=== PATIENT | female | born 1940 | race African-American/Black ===

== ENCOUNTER → 2020-06-30 | Day surgery (SDC) | payer MEDICARE ==
[~2020-06-30] MED LIST: BESIFLOXACIN HCL 0.6% OPH SUSP 5 ML BOTTLE OS PRN; CHONDR SU A NA/HYALUR INTRAOC KIT (SURGICARE) ONE; CYCLOPENTOLATE 0.2%/PHENYLEPHRINE 1% OPH SOLN 2 ML OS PRN; DORZOLAMIDE HCL 2%/TIMOLOL MALEAT 0.5% OPH SOLN 10 ML OS PRN; EPINEPHRINE INJ/PF 1 MG/1 ML AMPULE ONE; KETOROLAC TROMETHAMINE 0.45% 4 DROP/0.4 ML DROPERETTE OS PRN; LIDOCAINE 1%/PHENYLEPHRINE 1.5% 1 ML VIAL ONE; MIDAZOLAM 2 MG/2 ML INJ ONE; TETRACAINE HCL 0.5% OPH SOLN 4 ML OS PRN; TROPICAMIDE 1% OPH SOLN 15 ML OS PRN
--- OUTSIDE RECORDS SUMMARY | 2020-07-01 15:25 | XMS REPORT ---
:1940 [facility] [place] [facility] [address] [place] [id number] Care Team Providers Name Role Phone Monica Attending Clinician Unavailable Fawn Attending Clinician Unavailable Allergies, Adverse Reactions, Alerts This patient has no known allergies or adverse reactions. Medications This patient has no known medications. Problems This patient has no known problems. Procedures Procedure Date / Time Performed Performing Clinician Devic e OFFICE/OUTPATIENT VISIT EST 2020-02-11 14:15:00 OFFICE/OUTPATIENT VISIT NEW 2019-04-16 10:00:00 Results Test Description Test Time Test Comments Text Results Atomic Results Result Comments TSH W/REFLEX TO FT4 2020-02-15 09:12:00 1.60 CBC (INCLUDES DIFF/PLT) 2020-02-15 09:12:00 Test Item Value Reference Range Comments ABSOLUTE LYMPHOCYTES (test code = 54761488) 2131 cells/uL 850- 3900 ABSOLUTE MONOCYTES (test code = 26940253) 509 cells/uL 200-95 0 HEMATOCRIT (test code = 06854425) 39.4 % 35.0-45.0 MCHC (test code = 34455889) 33.5 g/dL 32.0-36.0 EOSINOPHILS (test code = 89441517) 5.8 % BASOPHILS (test code = 30246470) 0.6 % WHITE BLOOD CELL COUNT (test code = 76380864) 5.3 Thousand/uL 3. 8-10.8 RDW (test code = 98485219) 12.3 % 11.0-15.0 ABSOLUTE NEUTROPHILS (test code = 92241266) 2321 cells/uL 1500 -7800 ABSOLUTE BASOPHILS (test code = 95874916) 32 cells/uL 0-200 HEMOGLOBIN (test code = 37690491) 13.2 g/dL 11.7-15.5 ABSOLUTE EOSINOPHILS (test code = 89881221) 307 cells/uL 15-5 00 MCV (test code = 21056502) 95.9 fL 80.0-100.0 MPV (test code = 29094735) 11.5 fL 7.5-12.5 MONOCYTES (test code = 47729892) 9.6 % PLATELET COUNT (test code = 53449262) 183 Thousand/uL 140-400 RED BLOOD CELL COUNT (test code = 94898537) 4.11 Million/uL 3.80 -5.10 LYMPHOCYTES (test code = 81985573) 40.2 % NEUTROPHILS (test code = 37437220) 43.8 % MCH (test code = 79192838) 32.1 pg 27.0-33.0 LIPID PANEL, [id number] 09:12:00 Test Item Value Reference Range Comments TRIGLYCERIDES (test code = 73192291) 93 mg/dL <150 CHOLESTEROL, TOTAL (test code = 76200705) 232 mg/dL <200 LDL-CHOLESTEROL (test code = 38079881) 149 mg/dL (calc) NON HDL CHOLESTEROL (test code = 40385643) 169 mg/dL (calc) <130 HDL CHOLESTEROL (test code = 82677694) 63 mg/dL > OR = 50 CHOL/HDLC RATIO (test code = 34641383) 3.7 (calc) <5.0 COMPREHENSIVE METABOLIC [id number] 09:12:00 Test Item Value Reference Range Comments BILIRUBIN, TOTAL (test code = 62850419) 0.5 mg/dL 0.2-1.2 SODIUM (test code = 29569637) 145 mmol/L 135-146 ALBUMIN/GLOBULIN RATIO (test code = 1.2 (calc) 1.0-2.5 25014914) POTASSIUM (test code = 76855826) 3.5 mmol/L 3.5-5.3 PROTEIN, TOTAL (test code = 88207163) 6.9 g/dL 6.1-8.1 ALKALINE PHOSPHATASE (test code = 68794477) 75 U/L 37-1 53 BUN/CREATININE RATIO (test code = 52128987) 16 (calc) 6-22 CHLORIDE (test code = 71994251) 106 mmol/L 98-110 CREATININE (test code = 84559613) 1.19 mg/dL 0.60-0.93 eGFR (test code = 50 mL/min/1.73m2 > OR = 60 03529770) ALBUMIN (test code = 31429120) 3.8 g/dL 3.6-5.1 GLUCOSE (test code = 83886024) 83 mg/dL 65-99 AST (test code = 13165643) 22 U/L 10-35 GLOBULIN (test code = 63931783) 3.1 g/dL (calc) 1.9-3.7 CARBON DIOXIDE (test code = 53432998) 28 mmol/L 20-32 UREA NITROGEN (BUN) (test code = 06173891) 19 mg/dL 7-25 CALCIUM (test code = 07658116) 9.1 mg/dL 8.6-10.4 ALT (test code = 03963533) 13 U/L 6-29 eGFR NON-AFR. ESTONIAN (test code = 43 mL/min/1.73m2 > OR = 60 21179400) [id number] 10:53:00SEVERITY:- ABNORMAL ECG -ODBORDERLINE LEFT AXIS DEVIATIONConfirmed by: Barrington Pate MD 16-Apr-2019 12:46:28ORDERING PHYSICIAN: FAMILIA RUBALCAVAccession Number: [id number] NAME: ALANNAH MIRAMONTES R:NONSPECIFIC T ABNORMALITIES, DIFFUSE LEADSAGE: 79 RACE: AA Gender: FSINUS RHYTHMMRN: [id number] METABOLIC [id number] 10:23:00 Test Item Value Reference Range Comments CALCIUM (test code = 68961087) 9.3 mg/dL 8.6-10.4 CARBON DIOXIDE (test code = 80542735) 30 mmol/L 20-32 ALBUMIN/GLOBULIN RATIO (test code = 1.1 (calc) 1.0-2.5 41620912) PROTEIN, TOTAL (test code = 91236087) 6.8 g/dL 6.1-8.1 POTASSIUM (test code = 34528304) 3.7 mmol/L 3.5-5.3 GLUCOSE (test code = 15504431) 83 mg/dL 65-99 UREA NITROGEN (BUN) (test code = 78841256) 20 mg/dL 7-25 CHLORIDE (test code = 41361305) 105 mmol/L 98-110 SODIUM (test code = 45766189) 143 mmol/L 135-146 eGFR (test code = 49 mL/min/1.73m2 > OR = 60 87299636) ALKALINE PHOSPHATASE (test code = 11346164) 62 U/L 33-1 30 ALT (test code = 31089469) 11 U/L 6-29 CREATININE (test code = 56859236) 1.22 mg/dL 0.60-0.93 BUN/CREATININE RATIO (test code = 51914123) 16 (calc) 6-22 eGFR NON-AFR. ESTONIAN (test code = 42 mL/min/1.73m2 > OR = 60 93655523) GLOBULIN (test code = 69326636) 3.2 g/dL (calc) 1.9-3.7 AST (test code = 99381850) 18 U/L 10-35 BILIRUBIN, TOTAL (test code = 40742352) 0.3 mg/dL 0.2-1.2 ALBUMIN (test code = 91281460) 3.6 g/dL 3.6-5.1 CBC (H/H, RBC, INDICES, WBC, PLT)2019-04-16 10:23:00 Test Item Value Reference Range Comments MCHC (test code = 10815063) 33.1 g/dL 32.0-36.0 MCH (test code = 06633032) 31.8 pg 27.0-33.0 MCV (test code = 82225832) 96.1 fL 80.0-100.0 MPV (test code = 38521895) 11.2 fL 7.5-12.5 PLATELET COUNT (test code = 32843759) 204 Thousand/uL 140-400 HEMOGLOBIN (test code = 74663884) 12.9 g/dL 11.7-15.5 RED BLOOD CELL COUNT (test code = 33431506) 4.06 Million/uL 3.80 -5.10 HEMATOCRIT (test code = 71450412) 39.0 % 35.0-45.0 WHITE BLOOD CELL COUNT (test code = 6.4 Thousand/uL 3.8-10.8 88421225) RDW (test code = 68853254) 11.6 % 11.0-15.0 Assessments Condition Name Status Diagnosis Date Treating Clinici an Essential (primary) hypertension Active Other prison (current) drug therapy Active Encounter for screening for lipoid disorders Active Encounter for screening for oth suspected Active endocrine disorder Essential (primary) hypertension Active Persons encountering health services in oth Active circumstances Personal history of estrogen therapy Active Palpitations Active Encounters Start End Encounter Admission Attending Care Care Encounter Date/Time Date/Time Type Type Clinicians Facility Department ID 2020-02-11 2020-02-11 Outpatient Monica [facility] [id number] 14:15:00 14:15:00 [facility] [id number] and [id number] Multispecialty [id number] Clini 2019-04-16 2019-04-16 Outpatient Fawn [facility] [id number] 10:00:00 10:00:00 [facility] -[id number] and [phone] Multispecialty [id number] Clini Social History This patient has no known social history. Vital Signs This patient has no known vital signs.
== END ==
LOC: SC 12:06
PROVIDERS: ATTEND Ophthalmology
DX: Z53.9 Procedure and treatment not carried out, unspecified reason (principal)
CPT/HCPCS: J0171; J2250; J3490

== ENCOUNTER 2020-07-03 21:48 | Inpatient (IN) | payer MEDICARE ==
[2020-07-03 22:23] LABS: ABSOLUTE LYMPHOCYTES (AUTO) 1.3 10^3/uL (0.5-4.7); ABSOLUTE MONOCYTES (AUTO) 0.8 10^3/uL (0.1-1.4); ABSOLUTE NEUT (AUTO) 5.1 10^3/uL (1.7-8.2); BASOPHILS % (AUTO) 0.5 % (0-2); HEMATOCRIT 34.7 % (36.0-47.0); HEMOGLOBIN 11.6 g/dL (12.0-15.5); LYMPHOCYTES % (AUTO) 17.4 % (13-45); MEAN CORPUSCULAR HEMOGLOBIN 31.2 pg (27.0-33.4); MEAN CORPUSCULAR HGB CONC 33.5 g/dL (32.0-36.0); MEAN CORPUSCULAR VOLUME 93 fl (80-97); PLATELET COUNT 242 10^3/uL (150-450); RED BLOOD COUNT 3.73 10^6/uL (3.72-5.28); RED CELL DISTRIBUTION WIDTH 13.8 % (11.5-14.0); SEGMENTED NEUTROPHILS % (AUTO) 71.1 % (42-78); TOTAL CELLS COUNTED % (AUTO) 100 %; WHITE BLOOD COUNT 7.2 10^3/uL (4.0-10.5)
[2020-07-03] MEDS ORDERED: DEXAMETHASONE SOD PHOS INJ 10 MG/1 ML VIAL IV ONE (22:29)
[2020-07-03] MEDS ORDERED: CEFTRIAXONE 1 GM/D5W RTU 1 GM/50 ML RTUPB IV ONE (22:29)
[2020-07-03] MEDS ORDERED: AZITHROMYCIN INJ 500 MG VIAL IV ONE (22:29)
[2020-07-03] MEDS ORDERED: ACETAMINOPHEN 325 MG TABLET PO ONE (22:30)
[2020-07-03 22:40] LABS: ALBUMIN 3.4 g/dL (3.5-5.0); ALKALINE PHOSPHATASE 64 U/L (38-126); ANION GAP 9 (5-19); ASPARTATE AMINO TRANSFERASE 101 U/L (14-36); BILIRUBIN,DIRECT 0.3 mg/dL (0.0-0.4); BILIRUBIN,TOTAL 0.7 mg/dL (0.2-1.3); BLOOD UREA NITROGEN 18 mg/dL (7-20); CARBON DIOXIDE 37 mmol/L (22-30); CHLORIDE 97 mmol/L (98-107); CREATINE KINASE 89 U/L (30-135); GLUCOSE 112 mg/dL (75-110); POTASSIUM 3.5 mmol/L (3.6-5.0); TOTAL PROTEIN 6.7 g/dL (6.3-8.2)
--- NOTE | 2020-07-03 22:40 | ER Document Report ---
ED Respiratory Problem - General Chief Complaint: Flu Symptoms Stated Complaint: FLU SYMPTOMS Time Seen by Provider: 07/03/20 22:16 Notes: Patient is an 80-year-old female who comes emergency department for chief complaint of difficulty breathing. She states she has had worsening sickness from most a week, developing a cough, fever/chills, and generalized weakness. She denies sore throat, chest pain, abdominal pain, vomiting, flank pain, h eadache. Patient comes from home by EMS, she was found initially with oxygen saturation of 54% on room air, placed on 4 L and came up into the 70s, placed on nonrebreather and came up to almost 90. Patient has no history of smoking, asthma, COPD, cardiac history, or CHF reported. Patient states he has a history of seizures on Keppra and hypertension on amlodipine, no other medical history reported. Patient had a positive exposure to COVID-19 with her family, she has not been personally tested. TRAVEL OUTSIDE OF THE [place] IN LAST 30 DAYS: No - Related Data Allergies/Adverse Reactions: No Known Allergies Allergy (Verified 06/27/20 14:29) Past Medical History - General Information source: Patient - Social History Smoking Status: Never Smoker Frequency of alcohol use: None Drug Abuse: None Lives with: Family Family History: Reviewed & Not Pertinent - Past Medical History Cardiac Medical History: Reports: Hx Hypertension Denies: Hx Heart Attack Pulmonary Medical History: Denies: Hx Asthma, Hx Tuberculosis Neurological Medical History: Reports: Hx Seizures - 1 TIME. Denies: Hx Cerebrovascular Accident GI Medical History: Denies: Hx Hepatitis, Hx Hiatal Hernia, Hx Ulcer Musculoskeletal Medical History: Reports Hx Arthritis Psychiatric Medical History: Denies: Hx Depression Infectious Medical History: Denies: Hx Hepatitis Past Surgical History: Reports: Hx Hysterectomy. Denies: Hx Mastectomy, Hx Open Heart Surgery, Hx Pacemaker - Immunizations Hx Diphtheria, Pertussis, Tetanus Vaccination: - unknown Review of Systems - Review of Systems Constitutional: See HPI EENT: No symptoms reported Cardiovascular: No symptoms reported Respiratory: See HPI Gastrointestinal: No symptoms reported Genitourinary: No symptoms reported Female Genitourinary: No symptoms reported Musculoskeletal: No symptoms reported Skin: No symptoms reported Hematologic/Lymphatic: No symptoms reported Neurological/Psychological: No symptoms reported Physical Exam - Vital signs Vitals: Temp Pulse Ox 100.8 F H 90 L 07/03/20 21:49 11/15/20 21:49 - Notes Notes: GENERAL: Patient flushed and somewhat ill-appearing but she is still alert and cooperative HEAD: Normocephalic, atraumatic. EYES: Pupils equal, round, and reactive to light. Extraocular movements intact. ENT: Oral mucosa moist, tongue midline. Oropharynx unremarkable. Airway patent. NECK: Full range of motion. Supple. Trachea midline. No lymphadenopathy. LUNGS: Shallow breathing with tachypnea and mild respiratory distress. Rales heard throughout all lung mix. Patient is not speaking in full sentences HEART: Regular rate and rhythm. No murmur ABDOMEN: Soft, non-tender. Non-distended. EXTREMITIES: Moves all 4 extremities spontaneously. No edema, normal radial and dorsalis pedis pulses bilaterally. No cyanosis. BACK: no cervical, thoracic, lumbar midline tenderness. No saddle anesthesia, normal distal neurovascular exam. Moves all extremities in full range of motion. NEUROLOGICAL: Alert and oriented x3. Normal speech. Cranial nerves II through XII grossly intact. Strength 5/5 in all extremities. PSYCH: Normal affect, normal mood. SKIN: Flushed and warm Course - Re-evaluation Re-evalutation: Patient is hypoxic even on a nonrebreather she is 87% on room air. However she is able to speak, she has tachypnea but not severe respiratory distress. She does have rales throughout all lung mix. She is febrile with fever of 100.8. Based on her COVID-19 exposure and presentation I strongly suspect COVID-19 pneumonia. Patient will be placed on BiPAP, given treatment for community- acquired pneumonia, dexamethasone, and work-up is pending. Patient does deny recent hospitalization. Patient reevaluated on BiPAP, she has no tachypnea, no labored breathing, she states she feels much improved. She is 91% on BiPAP with FiO2 85%. Chest x-ray read as normal but does not appear clear to me, patient has obvious rales on exam, I suspect COVID-19 pneumonia still. CBC, chemistry nonspecific, troponin indeterminate, creatinine 1.27. Venous blood gas unremarkable. Spoke with Dr. Jo, hospitalist, he requests ABG. ABG shows oxygen of only 37.1. On reevaluation again patient remains unchanged. I have discussed all details with patient and patient is in full agreement with admission. Updated Dr. Jo. He recommends ICU consultation because of her concerning level of hypoxia and concerning level of required oxygenation. Discussed with Donny Redmond NP library information technician for the ICU, he evaluated the patient, he accepts patient for ICU admission. - Vital Signs Vital signs: Temp Pulse Resp BP Pulse Ox 97.8 F 14 96/67 L 88 L 07/04/20 03:57 07/04/20 03:27 07/04/20 03:00 07/04/20 03:27 - Laboratory Result Diagrams: 07/03/20 21:59 07/03/20 21:59 Laboratory results interpreted by me: 07/03/20 07/03/20 07/03/20 21:59 21:59 21:59 Hgb 11.6 L Hct 34.7 L Carbonic Acid ABG pCO2 ABG pO2 ABG HCO3 ABG Total CO2 ABG O2 Saturation VBG HCO3 Potassium 3.5 L Chloride 97 L Carbon Dioxide 37 H Creatinine 1.27 H Est GFR ( Amer) 49 L Est GFR (MDRD) Non-Af 40 L Glucose 112 H Calcium 8.0 L AST 101 H ALT 37 H NT-Pro-B Natriuret Pep 507 H Albumin 3.4 L SARS-CoV-2 (PCR) 07/03/20 07/04/20 07/04/20 21:59 00:29 00:48 Hgb Hct Carbonic Acid 1.72 H ABG pCO2 57.1 H ABG pO2 37.1 L* ABG HCO3 34.4 H ABG Total CO2 36.2 H ABG O2 Saturation 69.2 L VBG HCO3 34.5 H Potassium Chloride Carbon Dioxide Creatinine Est GFR ( Amer) Est GFR (MDRD) Non-Af Glucose Calcium AST ALT NT-Pro-B Natriuret Pep Albumin SARS-CoV-2 (PCR) POSITIVE H - EKG Interpretation by Me Additional EKG results interpreted by me: EKG shows sinus rhythm at a rate of 97, left axis deviation, T wave inversions anteriorly, no ST segment changes in consecutive leads. QTc 488 Critical Care Note - Critical Care Note Total time excluding time spent on procedures (mins): 40 - Acute respiratory failure Comments: Please allow 40 minutes of critical care time for evaluation of this critically ill patient with acute respiratory failure. Interventions including BiPAP, antibiotics, fever treatment. Time spent for multiple reevaluations. Time spent discussing with hospitalist, time spent discussing with system safety engineer for admission to the ICU. Discharge - Discharge Clinical Impression: Exposure to COVID-19 virus Fever Qualifiers: Fever type: unspecified Qualified Code(s): R50.9 - Fever, unspecified Acute respiratory failure Qualifiers: Respiratory failure complication: hypoxia Qualified Code(s): J96.01 - Acute respiratory failure with hypoxia Condition: Fair Disposition: ADMITTED INPATIENT Admitting Provider: Umberto ([employer] Boat [employer]) Unit Admitted: ICU
[2020-07-03 22:59] LABS: NT PRO BNP 507 pg/mL (<450)
[2020-07-03 23:02] LABS: VENOUS BLOOD BASE EXCESS 8.2 mmol/L; VENOUS BLOOD HCO3 34.5 mmol/L (20-32); VENOUS BLOOD PCO2 55.2 mmHg (35-63); VENOUS BLOOD PH 7.41 (7.30-7.42)
--- NOTE | 2020-07-03 23:06 | RADIOLOGY REPORT (SQ) ---
EXAM DESCRIPTION: XR CHEST 1 VIEW COMPLETED DATE/TME: 07/03/2020 22:34 CLINICAL HISTORY: 80 years, Female, shortness of breath COMPARISON: July 31, 2013 NUMBER OF VIEWS: 1 TECHNIQUE: Portable AP semiupright view of the chest was obtained at 10:28 PM. LIMITATIONS: None. FINDINGS: Heart size is within normal limits. Lungs are grossly clear. There is no evidence of pleural effusion or pneumothorax. IMPRESSION: No acute abnormality as above. copyright 2010 [employer]- All Rights Reserved
[2020-07-03 23:08] LABS: CREATINE KINASE MB < 0.22 ng/mL (<4.55)
[2020-07-03 23:09] LABS: TROPONIN I 0.036 ng/mL
--- NOTE | 2020-07-03 23:58 | EKG REPORT ---
SEVERITY:- ABNORMAL ECG - SINUS RHYTHM BORDERLINE LEFT AXIS DEVIATION NONSPECIFIC T ABNORMALITIES, DIFFUSE LEADS BORDERLINE PROLONGED QT INTERVAL : Confirmed by: Clarice Garvin 03-Jul-2020 23:58:05
[2020-07-04 00:44] LABS: ARTERIAL BLOOD H2CO3 1.72 mmol/L (1.05-1.35); ARTERIAL BLOOD HCO3 34.4 mmol/L (20-24); ARTERIAL BLOOD O2 SATURATION 69.2 % (94-98); ARTERIAL BLOOD PCO2 57.1 mmHg (35-45); ARTERIAL BLOOD TOTAL CO2 36.2 mmol/L (21-25)
[2020-07-04 00:47] LABS: ARTERIAL BLOOD FIO2 85%; ARTERIAL BLOOD PO2 37.1 mmHg (80-100)
[2020-07-04 01:24] LABS: A TYPE INFLUENZA AG NEGATIVE (NEGATIVE); B INFLUENZA AG NEGATIVE (NEGATIVE)
--- NOTE | 2020-07-04 02:06 | CRITICAL CARE ADMISSION REPORT ---
HPI Date:: 07/04/20 Time:: 01:49 Reason for ICU Reason:: Hypoxemia Admission Date/Time & PCP: Admission Date/Time: 07/04/20 01:35 Primary Care Provider: ALIZA RUBALCAVA HPI: This a pleasant 80 yo female who presented to the ED via medics after having progressive SOB, Fever, and confusion over the last week. She presented with c/o cough, fever, and weakness. Denies sore throat, cp, abd pain, h/a, n/v. EMS found an O2 of 54% on RA, up to 70s on 4lpm, and 90s on NRB. Of note, the patient lives with her family member who is positive for COVID-19. In the ED the pt was placed on BiPap, when her pO2 was in the 30s on her abg. - Diagnosis/Plan (1) Acute respiratory failure Qualifiers: Respiratory failure complication: hypoxia Qualified Code(s): J96.01 - Acute respiratory failure with hypoxia Is this a current diagnosis for this admission?: Yes Plan: Continue BiPap. May progress to Endotracheal Intubation 2/2 lab values, but clinically looks non-threatened. Will repeat ABG to f/u pO2, may be venous. (2) Exposure to COVID-19 virus Is this a current diagnosis for this admission?: Yes Plan: Check COVID-19 lab test now. On corticosteroids. Broad spectrum antbx, given CXR appearance. Would r/o pneumonia. White Cx. Consider remdesivir. (3) Fever Qualifiers: Fever type: unspecified Qualified Code(s): R50.9 - Fever, unspecified Is this a current diagnosis for this admission?: Yes Plan: R/o COVID. White Cx. Broad Spectrum antbx. Plan Summary: Resume Norvasc for HTN. Resume Keppra for Sz hx. Past Medical History Cardiac Medical History: Reports: Hypertension Denies: Myocardial Infarction Pulmonary Medical History: Denies: Asthma, Tuberculosis Neurological Medical History: Reports: Seizures - 1 TIME GI Medical History: Denies: Hepatitis, Hiatal Hernia Musculoskeltal Medical History: Reports: Arthritis Psychiatric Medical History: Denies: Depression Hematology: Denies: Anemia, Sickle Cell Disease Past Surgical History Past Surgical History: Reports: Hysterectomy Denies: Amputation, Mastectomy, Pacemaker Social/Family History - Social History Smoking Status: Never Smoker - Medication/Allergies Home Medications: Amlodipine Besylate [Norvasc 10 mg Tablet] 10 mg PO DAILY 06/27/20 Cholecalciferol (Vitamin D3) [Vitamin D3] 100 mcg PO DAILY 06/27/20 Levetiracetam [Keppra] 500 mg PO BID 06/27/20 Allergies/Adverse Reactions: No Known Allergies Allergy (Verified 06/27/20 14:29) Physical Exam Vital Signs: Temp Pulse Resp BP Pulse Ox 100.8 F H 15 92/59 L 92 07/03/20 21:49 07/04/20 01:01 07/04/20 01:00 07/04/20 01:01 Intake & Output 07/02/20 07/03/20 07/04/20 06:59 06:59 06:59 Intake Total 50 Balance 50 Weight 75 kg Weight/Height Weight 75 kg General appearance: PRESENT: no acute distress Head exam: PRESENT: atraumatic Eye exam: PRESENT: EOMI Ear exam: PRESENT: normal external ear exam Mouth exam: PRESENT: dry mucosa Neck exam: PRESENT: tracheal deviation Respiratory exam: PRESENT: clear to auscultation elliott, decreased breath sounds, unlabored. ABSENT: accessory muscle use, prolonged expiratory phas, rales, retraction, tachypnea Cardiovascular exam: PRESENT: RRR Pulses: PRESENT: normal radial pulses, normal dorsalis pedis pul Vascular exam: PRESENT: normal capillary refill GI/Abdominal exam: PRESENT: soft. ABSENT: tenderness Rectal exam: PRESENT: deferred Musculoskeletal exam: PRESENT: normal inspection. ABSENT: tenderness Neurological exam: PRESENT: alert, awake, oriented to person, oriented to place, oriented to time Additional comments: no edema Pt arouses to voice, but slow to respond. Fully awake, alert, oriented thereafter. No acute distress on BiPap. Appears comfortable. Laboratory/Radiographs Laboratory Results: 07/03/20 21:59 07/03/20 21:59 07/03/20 07/03/20 07/03/20 21:59 21:59 21:59 WBC 7.2 RBC 3.73 Hgb 11.6 L Hct 34.7 L MCV 93 MCH 31.2 MCHC 33.5 RDW 13.8 Plt Count 242 Seg Neutrophils % 71.1 Carbonic Acid HCO3/H2CO3 Ratio ABG pH ABG pCO2 ABG pO2 ABG HCO3 ABG O2 Saturation ABG Base Excess VBG pH 7.41 VBG pCO2 55.2 VBG HCO3 34.5 H VBG Base Excess 8.2 FiO2 Sodium 143.0 Potassium 3.5 L Chloride 97 L Carbon Dioxide 37 H Anion Gap 9 BUN 18 Creatinine 1.27 H Est GFR ( Amer) 49 L Glucose 112 H Lactic Acid Calcium 8.0 L Total Bilirubin 0.7 AST 101 H Alkaline Phosphatase 64 Total Protein 6.7 Albumin 3.4 L 07/03/20 07/04/20 21:59 00:29 WBC RBC Hgb Hct MCV MCH MCHC RDW Plt Count Seg Neutrophils % Carbonic Acid 1.72 H HCO3/H2CO3 Ratio 20:1 ABG pH 7.40 ABG pCO2 57.1 H ABG pO2 37.1 L* ABG HCO3 34.4 H ABG O2 Saturation 69.2 L ABG Base Excess 8.0 VBG pH VBG pCO2 VBG HCO3 VBG Base Excess FiO2 85% Sodium Potassium Chloride Carbon Dioxide Anion Gap BUN Creatinine Est GFR ( Amer) Glucose Lactic Acid 0.9 Calcium Total Bilirubin AST Alkaline Phosphatase Total Protein Albumin 07/03/20 07/03/20 21:59 21:59 Creatine Kinase 89 CK-MB (CK-2) < 0.22 Troponin I 0.036 NT-Pro-B Natriuret Pep 507 H Impressions: Chest X-Ray 07/03/20 22:17 IMPRESSION: No acute abnormality as above. copyright 2010 [employer]- All Rights Reserved Critical Time Critical Time (minutes): 40 -: The care of a critically ill patient is dynamic. This note represents a static moment in the admission process. Orders and treatments may be given simultaneously and urgently, and time is not leather goods sales representative of the treatment process. This patient requires Critical Care secondary to life threatening organ or limb dysfunction. Without Critical Care services, the patient is at risk for increas ed mortality and morbidity.
[2020-07-04] MEDS ORDERED: ONDANSETRON HCL INJ/PF 4 MG/2 ML SDV IV PRN (02:09)
[2020-07-04] MEDS ORDERED: ACETAMINOPHEN 325 MG TABLET PO PRN (02:09)
[2020-07-04] MEDS: CHOLECALCIFEROL (D3) 1,000 UNIT (25 MCG) TABLET PO SCH ×2 (03:22→10:35)
[2020-07-04] MEDS: IPRATROPIUM/ALBUTEROL 0.5-2.5 MG/3 ML AMPUL NEB SCH ×5 (03:22→20:09)
[2020-07-04] MEDS: ENOXAPARIN SODIUM INJ 40 MG/0.4 ML DISP.SYRIN SUBCUT SCH ×3 (03:22→22:27)
[2020-07-04] MEDS: ASCORBIC ACID 500 MG TABLET PO SCH ×5 (03:22→23:07)
[2020-07-04] MEDS: ZINC SULFATE 220 MG CAPSULE PO SCH ×2 (03:23→10:35)
[2020-07-04 06:21] LABS: ANION GAP 7 (5-19); BLOOD UREA NITROGEN 19 mg/dL (7-20); CARBON DIOXIDE 32 mmol/L (22-30); CHLORIDE 103 mmol/L (98-107); GLUCOSE 130 mg/dL (75-110); PHOSPHORUS 4.5 mg/dL (2.5-4.5); POTASSIUM 3.3 mmol/L (3.6-5.0)
[2020-07-04] MEDS: DEXAMETHASONE SOD PHOSPHATE INJ 4 MG/1 ML VIAL IV SCH ×3 (06:29→22:27)
[2020-07-04 06:50] LABS: ABSOLUTE LYMPHOCYTES (AUTO) 0.9 10^3/uL (0.5-4.7); ABSOLUTE MONOCYTES (AUTO) 0.5 10^3/uL (0.1-1.4); ABSOLUTE NEUT (AUTO) 5.9 10^3/uL (1.7-8.2); BASOPHILS % (AUTO) 0.2 % (0-2); EOSINOPHILS % (AUTO) 0.1 % (0-6); HEMATOCRIT 35.5 % (36.0-47.0); HEMOGLOBIN 11.8 g/dL (12.0-15.5); LYMPHOCYTES % (AUTO) 12.1 % (13-45); MEAN CORPUSCULAR HEMOGLOBIN 30.9 pg (27.0-33.4); MEAN CORPUSCULAR HGB CONC 33.2 g/dL (32.0-36.0); MEAN CORPUSCULAR VOLUME 93 fl (80-97); MONOCYTES % (AUTO) 6.8 % (3-13); PLATELET COUNT 238 10^3/uL (150-450); RED BLOOD COUNT 3.82 10^6/uL (3.72-5.28); RED CELL DISTRIBUTION WIDTH 13.8 % (11.5-14.0); SEGMENTED NEUTROPHILS % (AUTO) 80.8 % (42-78); TOTAL CELLS COUNTED % (AUTO) 100 %; WHITE BLOOD COUNT 7.3 10^3/uL (4.0-10.5)
[2020-07-04 07:30] LABS: CALCIUM 6.9 mg/dL (8.4-10.2)
[2020-07-04 07:49] LABS: ARTERIAL BLOOD BASE EXCESS 5.9 mmol/L; ARTERIAL BLOOD H2CO3 1.52 mmol/L (1.05-1.35); ARTERIAL BLOOD HCO3 31.7 mmol/L (20-24); ARTERIAL BLOOD O2 SATURATION 87.8 % (94-98); ARTERIAL BLOOD PCO2 50.6 mmHg (35-45); ARTERIAL BLOOD PH 7.42 (7.35-7.45); ARTERIAL BLOOD PO2 53.6 mmHg (80-100); ARTERIAL BLOOD TOTAL CO2 33.3 mmol/L (21-25)
[2020-07-04 07:50] LABS: ARTERIAL BLOOD FIO2 85%
[2020-07-04] MEDS ORDERED: ENOXAPARIN SODIUM INJ 40 MG/0.4 ML DISP.SYRIN SUBCUT SCH ×2 (10:00)
[2020-07-04] MEDS ORDERED: CEFEPIME 2 GM/D5W RTU 2 GM/50 ML RTUPB IV SCH (10:00)
[2020-07-04] MEDS: PANTOPRAZOLE SODIUM 40 MG VIAL IV SCH ×2 (10:33→22:28)
[2020-07-04] MEDS: CALCIUM GLUC IN NACL, ISO-OSM 1 GM/50 ML RTUPB IV SCH ×2 (10:35→13:41)
[2020-07-04] MEDS: CEFEPIME HCL 2 GM in DEXTROSE 5%-WATER 50 ML IV SCH ×2 (10:37→22:28)
[2020-07-04] MEDS ORDERED: REMDESIVIR 200 MG in NORMAL SALINE 250 ML IV ONE (12:00)
--- NOTE | 2020-07-04 13:06 | PDOC CRITICAL CARE PROG REPORT ---
General Date:: 07/04/20 ICU Day:: 2 Hospital Day:: 2 Events in the past 12 to 24 Hours:: Little change from admission into the ICU. The patient remains on BIPAP Her 02 sat is hovering at 87-90% on the BIPAP ABG showed a pH of 7.42/ PaCO2 51/ Pa02 of 54 this AM. The patient may have to be intuabted oin the next 24 hours if hypoxemia worsens. Reason for ICU Addmission:: Hypoxemia Physical Exam Vital Signs: Temp Pulse Resp BP Pulse Ox 97.7 F 81 16 100/68 90 L 07/04/20 07:01 07/04/20 12:30 07/04/20 12:31 07/04/20 07:01 07/04/20 12:31 Intake & Output 07/03/20 07/04/20 07/05/20 06:59 06:59 06:59 Intake Total 50 Output Total 75 300 Balance -25 -300 Weight 75 kg 75.9 kg Weight/Height Weight 75.9 kg Height 5 ft General appearance: PRESENT: cooperative, mild distress Head exam: PRESENT: atraumatic, normocephalic Eye exam: PRESENT: conjunctiva pink Neck exam: ABSENT: carotid bruit Respiratory exam: ABSENT: accessory muscle use Cardiovascular exam: PRESENT: RRR Pulses: PRESENT: normal carotid pulses, normal dorsalis pedis pul Vascular exam: PRESENT: normal capillary refill GI/Abdominal exam: ABSENT: ascites, guarding Rectal exam: PRESENT: deferred Gentrourinary exam: ABSENT: ecchymosis Extremities exam: ABSENT: calf tenderness, joint swelling Neurological exam: PRESENT: alert, awake Psychiatric exam: PRESENT: appropriate affect Laboratory/Radiographs Laboratory Results: 07/04/20 04:20 07/04/20 04:20 07/03/20 07/03/20 07/03/20 21:59 21:59 21:59 WBC 7.2 RBC 3.73 Hgb 11.6 L Hct 34.7 L MCV 93 MCH 31.2 MCHC 33.5 RDW 13.8 Plt Count 242 Seg Neutrophils % 71.1 Carbonic Acid HCO3/H2CO3 Ratio ABG pH ABG pCO2 ABG pO2 ABG HCO3 ABG O2 Saturation ABG Base Excess VBG pH 7.41 VBG pCO2 55.2 VBG HCO3 34.5 H VBG Base Excess 8.2 FiO2 Sodium 143.0 Potassium 3.5 L Chloride 97 L Carbon Dioxide 37 H Anion Gap 9 BUN 18 Creatinine 1.27 H Est GFR ( Amer) 49 L Glucose 112 H Lactic Acid Calcium 8.0 L Phosphorus Magnesium Total Bilirubin 0.7 AST 101 H Alkaline Phosphatase 64 Total Protein 6.7 Albumin 3.4 L 07/03/20 07/04/20 07/04/20 21:59 00:29 00:50 WBC RBC Hgb Hct MCV MCH MCHC RDW Plt Count Seg Neutrophils % Carbonic Acid 1.72 H HCO3/H2CO3 Ratio 20:1 ABG pH 7.40 ABG pCO2 57.1 H ABG pO2 37.1 L* ABG HCO3 34.4 H ABG O2 Saturation 69.2 L ABG Base Excess 8.0 VBG pH VBG pCO2 VBG HCO3 VBG Base Excess FiO2 85% Sodium Potassium Chloride Carbon Dioxide Anion Gap BUN Creatinine Est GFR ( Amer) Glucose Lactic Acid 0.9 0.7 Calcium Phosphorus Magnesium Total Bilirubin AST Alkaline Phosphatase Total Protein Albumin 07/04/20 07/04/20 07/04/20 04:20 04:20 04:20 WBC 7.3 RBC 3.82 Hgb 11.8 L Hct 35.5 L MCV 93 MCH 30.9 MCHC 33.2 RDW 13.8 Plt Count 238 Seg Neutrophils % 80.8 H Carbonic Acid HCO3/H2CO3 Ratio ABG pH ABG pCO2 ABG pO2 ABG HCO3 ABG O2 Saturation ABG Base Excess VBG pH VBG pCO2 VBG HCO3 VBG Base Excess FiO2 Sodium 141.8 Potassium 3.3 L Chloride 103 Carbon Dioxide 32 H Anion Gap 7 BUN 19 Creatinine 1.18 Est GFR ( Amer) 53 L Glucose 130 H Lactic Acid 1.3 Calcium 6.9 L* Phosphorus 4.5 Magnesium 2.0 Total Bilirubin AST Alkaline Phosphatase Total Protein Albumin 07/04/20 05:20 WBC RBC Hgb Hct MCV MCH MCHC RDW Plt Count Seg Neutrophils % Carbonic Acid 1.52 H HCO3/H2CO3 Ratio 20:1 ABG pH 7.42 ABG pCO2 50.6 H ABG pO2 53.6 L ABG HCO3 31.7 H ABG O2 Saturation 87.8 L ABG Base Excess 5.9 VBG pH VBG pCO2 VBG HCO3 VBG Base Excess FiO2 85% Sodium Potassium Chloride Carbon Dioxide Anion Gap BUN Creatinine Est GFR ( Amer) Glucose Lactic Acid Calcium Phosphorus Magnesium Total Bilirubin AST Alkaline Phosphatase Total Protein Albumin 07/03/20 07/03/20 21:59 21:59 Creatine Kinase 89 CK-MB (CK-2) < 0.22 Troponin I 0.036 NT-Pro-B Natriuret Pep 507 H Impressions: Chest X-Ray 07/03/20 22:17 IMPRESSION: No acute abnormality as above. copyright 2010 [employer]- All Rights Reserved Assessment and Plan - Diagnosis (1) Acute respiratory failure Qualifiers: Respiratory failure complication: hypoxia Qualified Code(s): J96.01 - Acute respiratory failure with hypoxia Is this a current diagnosis for this admission?: Yes Plan: The p[atient is at risk in the next few days of requiring mechanical ventialtion. (2) Exposure to COVID-19 virus Is this a current diagnosis for this admission?: Yes Plan: Patient lives at [facility] with other Covid+ relations. The patient started on decadron, will be gettign convalescent plasma and remdesovir. Critical Time Critical Time (minutes): 40 Level of Care: ICU -: 1. The care of a critical patient is a dynamic process. This note is a workforce services representative synopsis but static in nature. The timeframe for treatments given in order is not necessarily the actual time these treatments may have been done. 2. This patient requires critical care secondary to ongoing requirements for therapy not offered or safe outside the critical care environment. Transfer to a lower level of care will result in altered life or limb morbidity and mortality. 3. Multidisciplinary rounds completed. 4. ABCDE bundle addressed.
[2020-07-04 14:26] LABS: APPEARANCE,URINE SLIGHTLY-CLOUDY; BILIRUBIN,URINE NEGATIVE (NEGATIVE); COLOR,URINE YELLOW; GLUCOSE, URINE NEGATIVE (NEGATIVE); KETONES,URINE NEGATIVE (NEGATIVE); LEUKOCYTE ESTERASE,URINE NEGATIVE (NEGATIVE); NITRITE,URINE NEGATIVE (NEGATIVE); PROTEIN,URINE 30 mg/dL (NEGATIVE); URINE SPECIFIC GRAVITY 1.023; UROBILINOGEN,URINE NEGATIVE mg/dL (<2.0)
[2020-07-04] MEDS: NORMAL SALINE 1000 ML 1,000 ML IV PRN (16:38)
[2020-07-04] MEDS: POTASSI CL 20 MEQ/50 ML RIDER 20 MEQ/50 ML RTUPB IV SCH ×2 (16:38→18:00)
[2020-07-05] MEDS: IPRATROPIUM/ALBUTEROL 0.5-2.5 MG/3 ML AMPUL NEB SCH ×5 (00:49→20:35)
[2020-07-05] MEDS: NORMAL SALINE 1000 ML 1,000 ML IV PRN ×3 (02:12→21:49)
[2020-07-05 04:55] LABS: ABSOLUTE LYMPHOCYTES (AUTO) 1.1 10^3/uL (0.5-4.7); ABSOLUTE MONOCYTES (AUTO) 1.1 10^3/uL (0.1-1.4); ABSOLUTE NEUT (AUTO) 12.6 10^3/uL (1.7-8.2); BASOPHILS % (AUTO) 0.3 % (0-2); HEMATOCRIT 40.2 % (36.0-47.0); HEMOGLOBIN 13.2 g/dL (12.0-15.5); LYMPHOCYTES % (AUTO) 7.6 % (13-45); MEAN CORPUSCULAR HEMOGLOBIN 30.7 pg (27.0-33.4); MEAN CORPUSCULAR HGB CONC 32.9 g/dL (32.0-36.0); MEAN CORPUSCULAR VOLUME 94 fl (80-97); MONOCYTES % (AUTO) 7.3 % (3-13); PLATELET COUNT 300 10^3/uL (150-450); RED CELL DISTRIBUTION WIDTH 14.1 % (11.5-14.0); SEGMENTED NEUTROPHILS % (AUTO) 84.8 % (42-78); TOTAL CELLS COUNTED % (AUTO) 100 %
[2020-07-05 04:56] LABS: WHITE BLOOD COUNT 14.8 10^3/uL (4.0-10.5)
[2020-07-05 05:24] LABS: ANION GAP 11 (5-19); BLOOD UREA NITROGEN 23 mg/dL (7-20); CALCIUM 8.7 mg/dL (8.4-10.2); CARBON DIOXIDE 31 mmol/L (22-30); CHLORIDE 103 mmol/L (98-107); GLUCOSE 146 mg/dL (75-110); POTASSIUM 4.1 mmol/L (3.6-5.0)
[2020-07-05] MEDS: DEXAMETHASONE SOD PHOSPHATE INJ 4 MG/1 ML VIAL IV SCH ×3 (05:25→21:47)
[2020-07-05] MEDS: ASCORBIC ACID 500 MG TABLET PO SCH ×4 (05:25→23:45)
--- NOTE | 2020-07-05 09:11 | PDOC CRITICAL CARE PROG REPORT ---
General Date:: 07/05/20 ICU Day:: 3 Hospital Day:: 3 Events in the past 12 to 24 Hours:: Little change from admission into the ICU. The patient remains on BIPAP Her 02 sat is hovering at 87-90% on the BIPAP ABG showed a pH of 7.42/ PaCO2 51/ Pa02 of 54 this AM. The patient may have to be intubated oin the next 24 hours if hypoxemia worsens. 09/04 The patient is wide awake and conversant. Appears overall comfortable. Remains on BIPAP at an FI02 of 75%. The patient has been NPO since going on the BIPAP. Labs are unremarkableThe patient remains afebbrile. Reason for ICU Addmission:: Hypoxemia Physical Exam Vital Signs: Temp Pulse Resp BP Pulse Ox 98.1 F 90 20 134/75 H 95 07/05/20 04:00 07/05/20 08:37 07/05/20 08:37 07/05/20 08:03 07/05/20 08:37 Intake & Output 07/04/20 07/05/20 07/06/20 06:59 06:59 06:59 Intake Total 50 1171 Output Total 75 1230 60 Balance -25 -59 -60 Weight 75 kg 77.8 kg Weight/Height Weight 77.8 kg Height 5 ft Laboratory/Radiographs Laboratory Results: 07/05/20 04:01 07/05/20 04:01 07/03/20 07/04/20 07/05/20 13:45 13:45 04:01 WBC 14.8 H D RBC 4.30 Hgb 13.2 Hct 40.2 MCV 94 MCH 30.7 MCHC 32.9 RDW 14.1 H Plt Count 300 Seg Neutrophils % 84.8 H Sodium Potassium Chloride Carbon Dioxide Anion Gap BUN Creatinine Est GFR ( Amer) Glucose Calcium Urine Color YELLOW Urine Appearance SLIGHTLY-CLOUDY Urine pH 5.0 Ur Specific [place] 1.023 Urine Protein 30 H Urine Glucose (UA) NEGATIVE Urine Ketones NEGATIVE Urine Blood NEGATIVE Urine Nitrite NEGATIVE Ur Leukocyte Esterase NEGATIVE Urine WBC (Auto) 4 Urine RBC (Auto) 3 Blood Type O POSITIVE Antibody Screen NEGATIVE 07/05/20 04:01 WBC RBC Hgb Hct MCV MCH MCHC RDW Plt Count Seg Neutrophils % Sodium 145.4 H Potassium 4.1 Chloride 103 Carbon Dioxide 31 H Anion Gap 11 BUN 23 H Creatinine 1.05 Est GFR ( Amer) > 60 Glucose 146 H Calcium 8.7 Urine Color Urine Appearance Urine pH Ur Specific [place] Urine Protein Urine Glucose (UA) Urine Ketones Urine Blood Urine Nitrite Ur Leukocyte Esterase Urine WBC (Auto) Urine RBC (Auto) Blood Type Antibody Screen 07/03/20 07/03/20 21:59 21:59 Creatine Kinase 89 CK-MB (CK-2) < 0.22 Troponin I 0.036 NT-Pro-B Natriuret Pep 507 H Impressions: Chest X-Ray 07/03/20 22:17 IMPRESSION: No acute abnormality as above. copyright 2010 [employer]- All Rights Reserved Assessment and Plan - Diagnosis (1) Acute respiratory failure Qualifiers: Respiratory failure complication: hypoxia Qualified Code(s): J96.01 - Acute respiratory failure with hypoxia Is this a current diagnosis for this admission?: Yes Plan: The p[atient is at risk in the next few days of requiring mechanical ventialtion. 07/05 Little change in status. Maintaining her 02 sat on BIPAP. No use of accessory resp. muscles. The patient remains fully awake and conversant. ABG yesterday showed a mild chronic resp. acidosis (2) Exposure to COVID-19 virus Is this a current diagnosis for this admission?: Yes Plan: Patient lives at [facility] with other Covid+ relations. The patient started on decadron, will be gettign convalescent plasma and remdesovir. Critical Time Critical Time (minutes): 20 Level of Care: ICU -: 1. The care of a critical patient is a dynamic process. This note is a clearance representative synopsis but static in nature. The timeframe for treatments given in order is not necessarily the actual time these treatments may have been done. 2. This patient requires critical care secondary to ongoing requirements for therapy not offered or safe outside the critical care environment. Transfer to a lower level of care will result in altered life or limb morbidity and mortality. 3. Multidisciplinary rounds completed. 4. ABCDE bundle addressed.
[2020-07-05] MEDS: PANTOPRAZOLE SODIUM 40 MG VIAL IV SCH ×2 (10:12→21:47)
[2020-07-05] MEDS: ENOXAPARIN SODIUM INJ 40 MG/0.4 ML DISP.SYRIN SUBCUT SCH ×2 (10:12→21:48)
[2020-07-05] MEDS: ZINC SULFATE 220 MG CAPSULE PO SCH (10:13)
[2020-07-05] MEDS: CHOLECALCIFEROL (D3) 1,000 UNIT (25 MCG) TABLET PO SCH (10:13)
[2020-07-05] MEDS: CEFEPIME HCL 2 GM in DEXTROSE 5%-WATER 50 ML IV SCH ×2 (10:14→21:48)
[2020-07-05] MEDS: REMDESIVIR 100 MG in NORMAL SALINE 250 ML IV SCH (10:15)
[2020-07-06] MEDS: IPRATROPIUM/ALBUTEROL 0.5-2.5 MG/3 ML AMPUL NEB SCH ×4 (02:09→20:43)
[2020-07-06] MEDS: DEXAMETHASONE SOD PHOSPHATE INJ 4 MG/1 ML VIAL IV SCH ×3 (06:12→21:03)
[2020-07-06] MEDS: ASCORBIC ACID 500 MG TABLET PO SCH ×3 (06:12→17:26)
[2020-07-06] MEDS: NORMAL SALINE 1000 ML 1,000 ML IV PRN ×2 (08:22→21:03)
[2020-07-06] MEDS: PANTOPRAZOLE SODIUM 40 MG VIAL IV SCH ×2 (09:55→21:03)
[2020-07-06] MEDS: ENOXAPARIN SODIUM INJ 40 MG/0.4 ML DISP.SYRIN SUBCUT SCH ×2 (09:55→21:03)
[2020-07-06] MEDS: CEFEPIME HCL 2 GM in DEXTROSE 5%-WATER 50 ML IV SCH ×2 (09:55→21:02)
[2020-07-06] MEDS: REMDESIVIR 100 MG in NORMAL SALINE 250 ML IV SCH (11:00)
[2020-07-06] MEDS: CHOLECALCIFEROL (D3) 1,000 UNIT (25 MCG) TABLET PO SCH (11:06)
--- NOTE | 2020-07-06 11:19 | PDOC CRITICAL CARE PROG REPORT ---
General Date:: 07/06/20 ICU Day:: 4 Hospital Day:: 4 Events in the past 12 to 24 Hours:: Little change from admission into the ICU. The patient remains on BIPAP Her 02 sat is hovering at 87-90% on the BIPAP ABG showed a pH of 7.42/ PaCO2 51/ Pa02 of 54 this AM. The patient may have to be intubated oin the next 24 hours if hypoxemia worsens. 09/04 The patient is wide awake and conversant. Appears overall comfortable. Remains on BIPAP at an FI02 of 75%. The patient has been NPO since going on the BIPAP. Labs are unremarkable.The patient remains afebbrile. 07/06 The patient appears pretty comfortable. May be able to try on high flow NC or oxymizer today. Hopefully , thepatient can than take meds, eat or drink. Reason for ICU Addmission:: Hypoxemia Physical Exam Vital Signs: Temp Pulse Resp BP Pulse Ox 98.1 F 77 24 H 113/73 92 07/06/20 10:00 07/06/20 08:23 07/06/20 10:03 07/06/20 10:03 07/06/20 10:03 Intake & Output 07/05/20 07/06/20 07/07/20 06:59 06:59 06:59 Intake Total 1171 1803 1000 Output Total 1230 1635 275 Balance -59 168 725 Weight 77.8 kg 77.8 kg Weight/Height Weight 77.8 kg Height 5 ft Laboratory/Radiographs Laboratory Results: 07/05/20 04:01 07/05/20 04:01 07/03/20 07/03/20 21:59 21:59 Creatine Kinase 89 CK-MB (CK-2) < 0.22 Troponin I 0.036 NT-Pro-B Natriuret Pep 507 H Impressions: Chest X-Ray 07/03/20 22:17 IMPRESSION: No acute abnormality as above. copyright 2010 [employer]- All Rights Reserved Assessment and Plan - Diagnosis (1) Acute respiratory failure Qualifiers: Respiratory failure complication: hypoxia Qualified Code(s): J96.01 - Acute respiratory failure with hypoxia Is this a current diagnosis for this admission?: Yes Plan: The p[atient is at risk in the next few days of requiring mechanical ventialtion. 07/05 Little change in status. Maintaining her 02 sat on BIPAP. No use of accessory resp. muscles. The patient remains fully awake and conversant. ABG yesterday showed a mild chronic resp. acidosis 07/06 Slight decrease in 02 needs today. no use andres accessory resp.mm. or tachypnea. No cough. Patient fully awake and cooperative. I am repeating CXR today. (2) Exposure to COVID-19 virus Is this a current diagnosis for this admission?: Yes Plan: Patient lives at [facility] with other Covid+ relations. The patient started on decadron, will be gettign convalescent plasma and remdesovir. Critical Time Critical Time (minutes): 25 Level of Care: ICU -: 1. The care of a critical patient is a dynamic process. This note is a district sales representative synopsis but static in nature. The timeframe for treatments gi francesco in order is not necessarily the actual time these treatments may have been done. 2. This patient requires critical care secondary to ongoing requirements for therapy not offered or safe outside the critical care environment. Transfer to a lower level of care will result in altered life or limb morbidity and mortality. 3. Multidisciplinary rounds completed. 4. ABCDE bundle addressed.
[2020-07-06] MEDS: ZINC SULFATE 220 MG CAPSULE PO SCH (12:23)
[2020-07-07] MEDS: ASCORBIC ACID 500 MG TABLET PO SCH ×4 (00:24→18:30)
[2020-07-07] MEDS: IPRATROPIUM/ALBUTEROL 0.5-2.5 MG/3 ML AMPUL NEB SCH ×4 (02:47→19:38)
[2020-07-07 04:47] LABS: HEMATOCRIT 39.8 % (36.0-47.0); MEAN CORPUSCULAR HEMOGLOBIN 30.5 pg (27.0-33.4); MEAN CORPUSCULAR HGB CONC 32.7 g/dL (32.0-36.0); MEAN CORPUSCULAR VOLUME 93 fl (80-97); PLATELET COUNT 451 10^3/uL (150-450); RED BLOOD COUNT 4.27 10^6/uL (3.72-5.28); WHITE BLOOD COUNT 21.1 10^3/uL (4.0-10.5)
[2020-07-07 05:04] LABS: ANION GAP 10 (5-19); BLOOD UREA NITROGEN 29 mg/dL (7-20); CALCIUM 8.4 mg/dL (8.4-10.2); CARBON DIOXIDE 25 mmol/L (22-30); CHLORIDE 109 mmol/L (98-107); GLUCOSE 121 mg/dL (75-110); POTASSIUM 4.2 mmol/L (3.6-5.0)
[2020-07-07] MEDS: DEXAMETHASONE SOD PHOSPHATE INJ 4 MG/1 ML VIAL IV SCH ×3 (06:22→21:46)
[2020-07-07] MEDS: ENOXAPARIN SODIUM INJ 40 MG/0.4 ML DISP.SYRIN SUBCUT SCH ×2 (09:38→21:47)
[2020-07-07] MEDS: CHOLECALCIFEROL (D3) 1,000 UNIT (25 MCG) TABLET PO SCH (09:38)
[2020-07-07] MEDS: ZINC SULFATE 220 MG CAPSULE PO SCH (09:38)
[2020-07-07] MEDS: PANTOPRAZOLE SODIUM 40 MG VIAL IV SCH ×2 (09:38→21:46)
[2020-07-07] MEDS: CEFEPIME HCL 2 GM in DEXTROSE 5%-WATER 50 ML IV SCH ×2 (09:39→23:03)
[2020-07-07] MEDS: REMDESIVIR 100 MG in NORMAL SALINE 250 ML IV SCH (12:06)
--- NOTE | 2020-07-07 12:24 | RADIOLOGY REPORT (SQ) ---
EXAM DESCRIPTION: CHEST SINGLE VIEW IMAGES COMPLETED DATE/TIME: 07/07/2020 9:38 am REASON FOR STUDY: covid pneumonia f/u COMPARISON: 07/03/2020 EXAM PARAMETERS: NUMBER OF VIEWS: One view. TECHNIQUE: Single frontal radiographic view of the chest acquired. RADIATION DOSE: NA LIMITATIONS: None. FINDINGS: LUNGS AND PLEURA: Cannot exclude retrocardiac opacification on the left. MEDIASTINUM AND HILAR STRUCTURES: No masses. Contour normal. HEART AND VASCULAR STRUCTURES: Heart normal in size. Normal vasculature. BONES: No acute findings. HARDWARE: None in the chest. OTHER: No other significant finding. IMPRESSION: Cannot exclude left lower lobe pneumonia. TECHNICAL DOCUMENTATION: JOB ID: [id number] 2010 [employer]- All Rights Reserved Reading location - IP/workstation name: [email or web address]
--- NOTE | 2020-07-07 12:34 | PDOC CRITICAL CARE PROG REPORT ---
General Date:: 06/23/20 ICU Day:: 5 Hospital Day:: 5 Resuscitation Status: Full Code Events in the past 12 to 24 Hours:: Little change from admission into the ICU. The patient remains on BIPAP Her 02 sat is hovering at 87-90% on the BIPAP ABG showed a pH of 7.42/ PaCO2 51/ Pa02 of 54 this AM. The patient may have to be intubated oin the next 24 hours if hypoxemia worsens. 09/04 The patient is wide awake and conversant. Appears overall comfortable. Remains on BIPAP at an FI02 of 75%. The patient has been NPO since going on the BIPAP. Labs are unremarkable.The patient remains afebbrile. 07/06 The patient appears pretty comfortable. May be able to try on high flow NC or oxymizer today. Hopefully , thepatient can than take meds, eat or drink. 07/07 The patient looks reasonably well. Was able to tolerate oxymyzer at 12 lpm today. Was able to eat breakfast. The patient has been monitored in the ICU setting several days and appears to be getting better. She will be moved to the medical floor Reason for ICU Addmission:: Hypoxemia Physical Exam Vital Signs: Temp Pulse Resp BP Pulse Ox 97.9 F 82 21 H 135/76 H 97 07/07/20 10:00 07/07/20 10:00 07/07/20 11:00 07/07/20 10:04 07/07/20 11:00 Intake & Output 07/06/20 07/07/20 07/08/20 06:59 06:59 06:59 Intake Total 2053 2250 Output Total 1635 2115 0 Balance 418 135 0 Weight 77.8 kg 75.7 kg Weight/Height Weight 75.7 kg Height 5 ft Laboratory/Radiographs Laboratory Results: 07/07/20 03:55 07/07/20 03:55 07/07/20 07/07/20 03:55 03:55 WBC 21.1 H RBC 4.27 Hgb 13.0 Hct 39.8 MCV 93 MCH 30.5 MCHC 32.7 RDW 14.0 Plt Count 451 H Sodium 144.0 Potassium 4.2 Chloride 109 H Carbon Dioxide 25 Anion Gap 10 BUN 29 H Creatinine 1.02 Est GFR ( Amer) > 60 Glucose 121 H Calcium 8.4 07/03/20 07/03/20 21:59 21:59 Creatine Kinase 89 CK-MB (CK-2) < 0.22 Troponin I 0.036 NT-Pro-B Natriuret Pep 507 H Impressions: Chest X-Ray 07/07/20 00:00 IMPRESSION: Cannot exclude left lower lobe pneumonia. Assessment and Plan - Diagnosis (1) Acute respiratory failure Qualifiers: Respiratory failure complication: hypoxia Qualified Code(s): J96.01 - Acute respiratory failure with hypoxia Is this a current diagnosis for this admission?: Yes Plan: The patient is at risk in the next few days of requiring mechanical ventialtion. 07/05 Little change in status. Maintaining her 02 sat on BIPAP. No use of accessory resp. muscles. The patient remains fully awake and conversant. ABG yesterday showed a mild chronic resp. acidosis 07/06 Slight decrease in 02 needs today. no use andres accessory resp.mm. or tachypnea. No cough. Patient fully awake and cooperative. I am repeating CXR today. 07/07 the patient appears to be doing reasonably well.Her RR is within normal limits . She is maintaining her 02 sat of 96% on oxymyzer. i think she vcan be downgraded to the medicalunit. (2) Exposure to COVID-19 virus Is this a current diagnosis for this admission?: Yes Plan: Patient lives at [facility] with other Covid+ relations. The patient started on decadron, will be gettign convalescent plasma and remdesovir. Critical Time Critical Time (minutes): 15 Level of Care: ICU -: 1. The care of a critical patient is a dynamic process. This note is a sales representative printing synopsis but static in nature. The timeframe for treatments given in order is not necessarily the actual time these treatments may have been done. 2. This patient requires critical care secondary to ongoing requirements for therapy not offered or safe outside the critical care environment. Transfer to a lower level of care will result in altered life or limb morbidity and mortality. 3. Multidisciplinary rounds completed. 4. ABCDE bundle addressed.
[2020-07-08] MEDS: ASCORBIC ACID 500 MG TABLET PO SCH ×4 (00:10→17:46)
[2020-07-08] MEDS: NORMAL SALINE 1000 ML 1,000 ML IV PRN ×3 (00:10→19:00)
[2020-07-08] MEDS: IPRATROPIUM/ALBUTEROL 0.5-2.5 MG/3 ML AMPUL NEB SCH ×4 (03:08→21:30)
[2020-07-08 05:29] LABS: HEMATOCRIT 39.5 % (36.0-47.0); HEMOGLOBIN 13.2 g/dL (12.0-15.5); MEAN CORPUSCULAR HEMOGLOBIN 31.1 pg (27.0-33.4); MEAN CORPUSCULAR HGB CONC 33.5 g/dL (32.0-36.0); MEAN CORPUSCULAR VOLUME 93 fl (80-97); PLATELET COUNT 467 10^3/uL (150-450); RED BLOOD COUNT 4.26 10^6/uL (3.72-5.28); RED CELL DISTRIBUTION WIDTH 14.1 % (11.5-14.0); WHITE BLOOD COUNT 20.9 10^3/uL (4.0-10.5)
[2020-07-08 06:05] LABS: ANION GAP 13 (5-19); BLOOD UREA NITROGEN 26 mg/dL (7-20); CALCIUM 8.7 mg/dL (8.4-10.2); CARBON DIOXIDE 23 mmol/L (22-30); CHLORIDE 108 mmol/L (98-107); GLUCOSE 120 mg/dL (75-110); POTASSIUM 4.5 mmol/L (3.6-5.0)
[2020-07-08] MEDS: DEXAMETHASONE SOD PHOSPHATE INJ 4 MG/1 ML VIAL IV SCH ×3 (06:10→21:32)
[2020-07-08] MEDS: REMDESIVIR 100 MG in NORMAL SALINE 250 ML IV SCH (10:45)
[2020-07-08] MEDS: CEFEPIME HCL 2 GM in DEXTROSE 5%-WATER 50 ML IV SCH ×2 (10:47→21:33)
[2020-07-08] MEDS: ENOXAPARIN SODIUM INJ 40 MG/0.4 ML DISP.SYRIN SUBCUT SCH ×2 (10:47→21:32)
[2020-07-08] MEDS: CHOLECALCIFEROL (D3) 1,000 UNIT (25 MCG) TABLET PO SCH (10:48)
[2020-07-08] MEDS: ZINC SULFATE 220 MG CAPSULE PO SCH (10:49)
[2020-07-08] MEDS: PANTOPRAZOLE SODIUM 40 MG VIAL IV SCH ×2 (11:01→21:32)
--- NOTE | 2020-07-08 13:49 | PDOC PROGRESS REPORT ---
Subjective Date:: 07/08/20 Subjective:: Patient was transferred from the ICU after being admitted on 1115 with a respira tory failure secondary to Covid pneumonitis. She was placed on BiPAP. Oxygenation is around 87 to 90% initially but this has since improved to about 90% on 12 L of oxygen. She received convalescent plasma as well as remdesivir she is awake and alert. Reason For Visit: ACUTE RESPIRATORY FAILURE Physical Exam Vital Signs: Temp Pulse Resp BP Pulse Ox 97.8 F 108 H 18 142/86 H 88 L 07/08/20 12:32 07/08/20 12:32 07/08/20 12:32 07/08/20 12:32 07/08/20 12:54 Intake & Output 07/07/20 07/08/20 07/09/20 06:59 06:59 06:59 Intake Total 2250 1522 1000 Output Total 2115 2300 Balance 135 -778 1000 Weight 75.7 kg 74.7 kg General appearance: PRESENT: no acute distress, other - Elderly female in no distress Head exam: PRESENT: atraumatic, normocephalic Eye exam: PRESENT: conjunctiva pink, EOMI, PERRLA. ABSENT: scleral icterus Mouth exam: PRESENT: tongue midline Neck exam: ABSENT: carotid bruit, JVD, lymphadenopathy, thyromegaly Respiratory exam: PRESENT: decreased breath sounds, unlabored. ABSENT: rales, rhonchi, wheezes Cardiovascular exam: PRESENT: RRR. ABSENT: diastolic murmur, rubs, systolic murmur Pulses: PRESENT: normal dorsalis pedis pul Vascular exam: PRESENT: normal capillary refill GI/Abdominal exam: PRESENT: normal bowel sounds, soft. ABSENT: distended, guarding, mass, organolmegaly, rebound, tenderness Rectal exam: PRESENT: deferred Extremities exam: PRESENT: full ROM. ABSENT: calf tenderness, clubbing, pedal edema Neurological exam: PRESENT: alert, awake, oriented to person, oriented to place, oriented to time, oriented to situation. ABSENT: motor sensory deficit Psychiatric exam: PRESENT: appropriate affect, normal mood. ABSENT: homicidal ideation, suicidal ideation Skin exam: PRESENT: dry, intact, warm. ABSENT: cyanosis, rash Results Laboratory Results: 07/08/20 04:24 07/08/20 04:24 07/08/20 07/08/20 04:24 04:24 WBC 20.9 H RBC 4.26 Hgb 13.2 Hct 39.5 MCV 93 MCH 31.1 MCHC 33.5 RDW 14.1 H Plt Count 467 H Sodium 143.8 Potassium 4.5 Chloride 108 H Carbon Dioxide 23 Anion Gap 13 BUN 26 H Creatinine 0.93 Est GFR ( Amer) > 60 Glucose 120 H Calcium 8.7 07/03/20 07/03/20 21:59 21:59 Creatine Kinase 89 CK-MB (CK-2) < 0.22 Troponin I 0.036 NT-Pro-B Natriuret Pep 507 H Impressions: Chest X-Ray 07/07/20 00:00 IMPRESSION: Cannot exclude left lower lobe pneumonia. Assessment and Plan - Diagnosis (1) Pneumonia due to COVID-19 virus Is this a current diagnosis for this admission?: Yes (2) Acute respiratory failure Qualifiers: Respiratory failure complication: hypoxia Qualified Code(s): J96.01 - Acute respiratory failure with hypoxia Is this a current diagnosis for this admission?: Yes Plan: The patient is at risk in the next few days of requiring mechanical ventialtion. 07/05 Little change in status. Maintaining her 02 sat on BIPAP. No use of accessory resp. muscles. The patient remains fully awake and conversant. ABG yesterday showed a mild chronic resp. acidosis 07/06 Slight decrease in 02 needs today. no use andres accessory resp.mm. or tachypnea. No cough. Patient fully awake and cooperative. I am repeating CXR today. 07/07 the patient appears to be doing reasonably well.Her RR is within normal limits . She is maintaining her 02 sat of 96% on oxymyzer. i think she vcan be downgraded to the medicalunit. 07/08 Continue with 12L Oxymyzer and wean off as tolerated - Plan Summary Summary: Chest x-ray shows a left lower lobe pneumonia. Patient has been on cefepime/dexamethasone 4 mg every 8 which I will begin to taper once appropriate and hopefully once her oxygenation level is improved. Leukocytosis for text is likely secondary to steroids - Time Time Spent with patient: 15-24 minutes Medications reviewed and adjusted accordingly: Yes Anticipated Discharge Disposition: Home, Self Care Anticipated Discharge Timeframe: within 72 hours
[2020-07-09] MEDS ORDERED: DEXTROSE 50%-WATER 25 GM/50 ML DISP.SYRIN IV PRN ×2 (01:47)
[2020-07-09] MEDS ORDERED: GLUCAGON,HUMAN RECOMB 1 MG INJ SUBCUT PRN (01:47)
[2020-07-09] MEDS ORDERED: DEXTROSE 40% GEL 15 GM TUBE PO PRN ×2 (01:47)
[2020-07-09] MEDS: IPRATROPIUM/ALBUTEROL 0.5-2.5 MG/3 ML AMPUL NEB SCH ×4 (02:12→20:16)
[2020-07-09] MEDS: ASCORBIC ACID 500 MG TABLET PO SCH ×4 (02:58→17:00)
[2020-07-09] MEDS: DEXAMETHASONE SOD PHOSPHATE INJ 4 MG/1 ML VIAL IV SCH ×3 (05:31→21:31)
[2020-07-09 06:21] LABS: HEMATOCRIT 40.3 % (36.0-47.0); HEMOGLOBIN 13.5 g/dL (12.0-15.5); MEAN CORPUSCULAR HGB CONC 33.4 g/dL (32.0-36.0); MEAN CORPUSCULAR VOLUME 93 fl (80-97); PLATELET COUNT 509 10^3/uL (150-450); RED BLOOD COUNT 4.35 10^6/uL (3.72-5.28); RED CELL DISTRIBUTION WIDTH 14.3 % (11.5-14.0); WHITE BLOOD COUNT 18.6 10^3/uL (4.0-10.5)
[2020-07-09 06:57] LABS: ANION GAP 11 (5-19); BLOOD UREA NITROGEN 28 mg/dL (7-20); CARBON DIOXIDE 22 mmol/L (22-30); CHLORIDE 109 mmol/L (98-107); GLUCOSE 105 mg/dL (75-110)
[2020-07-09] MEDS: CHOLECALCIFEROL (D3) 1,000 UNIT (25 MCG) TABLET PO SCH (09:27)
[2020-07-09] MEDS: ZINC SULFATE 220 MG CAPSULE PO SCH (09:28)
[2020-07-09] MEDS: PANTOPRAZOLE SODIUM 40 MG VIAL IV SCH ×2 (09:32→21:31)
[2020-07-09] MEDS: ENOXAPARIN SODIUM INJ 40 MG/0.4 ML DISP.SYRIN SUBCUT SCH ×2 (09:32→21:31)
--- NOTE | 2020-07-09 10:47 | PDOC PROGRESS REPORT ---
Subjective Date:: 07/09/20 Subjective:: Patient was transferred from the ICU after being admitted on 1115 with a respira tory failure secondary to Covid pneumonitis. She was placed on BiPAP. Oxygenation is around 87 to 90% initially but this has since improved to about 90% on 12 L of oxygen. She received convalescent plasma as well as remdesivir she is awake and alert. 07/09 Patient is still on high flow oxygen. She appears to be more confused today. Reason For Visit: ACUTE RESPIRATORY FAILURE Physical Exam Vital Signs: Temp Pulse Resp BP Pulse Ox 98.5 F 107 H 24 H 131/74 H 98 07/09/20 04:15 07/09/20 08:34 07/09/20 08:34 07/09/20 04:15 07/09/20 08:34 Intake & Output 07/08/20 07/09/20 07/10/20 06:59 06:59 06:59 Intake Total 1522 1000 Output Total 2300 1625 Balance -778 -625 Weight 74.7 kg 74.7 kg 74.7 kg General appearance: PRESENT: no acute distress, other - Elderly female Head exam: PRESENT: atraumatic, normocephalic Eye exam: PRESENT: conjunctiva pink, EOMI, PERRLA. ABSENT: scleral icterus Mouth exam: PRESENT: tongue midline Neck exam: ABSENT: carotid bruit, JVD, lymphadenopathy, thyromegaly Respiratory exam: PRESENT: decreased breath sounds. ABSENT: rales, rhonchi, wheezes Cardiovascular exam: PRESENT: RRR. ABSENT: diastolic murmur, rubs, systolic murmur Pulses: PRESENT: normal dorsalis pedis pul GI/Abdominal exam: PRESENT: normal bowel sounds, soft. ABSENT: distended, guarding, mass, organolmegaly, rebound, tenderness Rectal exam: PRESENT: deferred Extremities exam: PRESENT: full ROM. ABSENT: calf tenderness, clubbing, pedal edema Neurological exam: PRESENT: alert, awake. ABSENT: motor sensory deficit Psychiatric exam: PRESENT: homicidal ideation Skin exam: PRESENT: dry, intact, warm. ABSENT: cyanosis, rash Results Laboratory Results: 07/09/20 05:40 07/09/20 05:40 07/09/20 07/09/20 07/09/20 05:40 05:40 05:40 WBC 18.6 H RBC 4.35 Hgb 13.5 Hct 40.3 MCV 93 MCH 31.0 MCHC 33.4 RDW 14.3 H Plt Count 509 H Sodium 142.4 Potassium 5.0 Chloride 109 H Carbon Dioxide 22 Anion Gap 11 BUN 28 H Creatinine 0.88 Est GFR ( Amer) > 60 Glucose 105 Calcium 9.0 TSH 0.33 L 07/04/20 00:50 Blood Blood Culture - Final NO GROWTH IN 5 DAYS 07/03/20 21:59 Blood Blood Culture - Final NO GROWTH IN 5 DAYS 07/03/20 07/03/20 21:59 21:59 Creatine Kinase 89 CK-MB (CK-2) < 0.22 Troponin I 0.036 NT-Pro-B Natriuret Pep 507 H Impressions: Chest X-Ray 07/07/20 00:00 IMPRESSION: Cannot exclude left lower lobe pneumonia. Assessment and Plan - Diagnosis (1) Pneumonia due to COVID-19 virus Is this a current diagnosis for this admission?: Yes (2) Acute respiratory failure Qualifiers: Respiratory failure complication: hypoxia Qualified Code(s): J96.01 - Acute respiratory failure with hypoxia Is this a current diagnosis for this admission?: Yes Plan: The patient is at risk in the next few days of requiring mechanical ventialtion. 07/05 Little change in status. Maintaining her 02 sat on BIPAP. No use of accessory resp. muscles. The patient remains fully awake and conversant. ABG yesterday showed a mild chronic resp. acidosis 07/06 Slight decrease in 02 needs today. no use andres accessory resp.mm. or tachypnea. No cough. Patient fully awake and cooperative. I am repeating CXR today. 07/07 the patient appears to be doing reasonably well.Her RR is within normal limits . She is maintaining her 02 sat of 96% on oxymyzer. i think she vcan be downgraded to the medicalunit. 07/08 Continue with 12L Oxymyzer and wean off as tolerated 07/09 Continue with current management, taper Oxygen as tolerated - Plan Summary Summary: Chest x-ray shows a left lower lobe pneumonia. Patient has been on cefepime/dexamethasone 4 mg every 8 which I will begin to taper once appropriate and hopefully once her oxygenation level is improved. Will leave her on steroids for now. Leukocytosis is likely secondary to steroids, no evidence of worsening infection - Time Time Spent with patient: 15-24 minutes Medications reviewed and adjusted accordingly: Yes Anticipated Discharge Disposition: [facility] Anticipated Discharge Timeframe: within 72 hours
[2020-07-09] MEDS: CEFEPIME HCL 2 GM in DEXTROSE 5%-WATER 50 ML IV SCH ×2 (11:03→21:33)
[2020-07-09] MEDS: NORMAL SALINE 1000 ML 1,000 ML IV PRN (18:22)
--- NOTE | 2020-07-09 21:00 | EKG REPORT ---
SEVERITY:- ABNORMAL ECG - SINUS RHYTHM ATRIAL PREMATURE COMPLEX NONSPECIFIC T ABNORMALITIES, ANT-LAT LEADS : Confirmed by: Chrissie Benitez MD 09-Jul-2020 20:59:30
[2020-07-10] MEDS: IPRATROPIUM/ALBUTEROL 0.5-2.5 MG/3 ML AMPUL NEB SCH ×3 (02:36→14:24)
[2020-07-10] MEDS: ASCORBIC ACID 500 MG TABLET PO SCH ×4 (03:10→18:53)
[2020-07-10 06:06] LABS: HEMATOCRIT 41.3 % (36.0-47.0); HEMOGLOBIN 13.7 g/dL (12.0-15.5); MEAN CORPUSCULAR HEMOGLOBIN 30.6 pg (27.0-33.4); MEAN CORPUSCULAR HGB CONC 33.1 g/dL (32.0-36.0); MEAN CORPUSCULAR VOLUME 92 fl (80-97); PLATELET COUNT 536 10^3/uL (150-450); RED BLOOD COUNT 4.47 10^6/uL (3.72-5.28); RED CELL DISTRIBUTION WIDTH 13.8 % (11.5-14.0); WHITE BLOOD COUNT 16.6 10^3/uL (4.0-10.5)
[2020-07-10 06:33] LABS: ANION GAP 14 (5-19); BLOOD UREA NITROGEN 28 mg/dL (7-20); CALCIUM 9.4 mg/dL (8.4-10.2); CARBON DIOXIDE 22 mmol/L (22-30); CHLORIDE 109 mmol/L (98-107); GLUCOSE 99 mg/dL (75-110); POTASSIUM 4.4 mmol/L (3.6-5.0)
[2020-07-10] MEDS: DEXAMETHASONE SOD PHOSPHATE INJ 4 MG/1 ML VIAL IV SCH ×2 (06:48→21:10)
[2020-07-10 07:48] LABS: FREE T3 1.45 pg/mL (2.77-5.27); FREE T4 (FREE THYROXINE) 0.99 ng/dL (0.78-2.19)
[2020-07-10] MEDS: ZINC SULFATE 220 MG CAPSULE PO SCH (09:54)
[2020-07-10] MEDS: CHOLECALCIFEROL (D3) 1,000 UNIT (25 MCG) TABLET PO SCH (09:54)
[2020-07-10] MEDS: CEFEPIME HCL 2 GM in DEXTROSE 5%-WATER 50 ML IV SCH ×2 (10:32→21:11)
[2020-07-10] MEDS: PANTOPRAZOLE SODIUM 40 MG VIAL IV SCH ×2 (10:32→21:10)
[2020-07-10] MEDS: ENOXAPARIN SODIUM INJ 40 MG/0.4 ML DISP.SYRIN SUBCUT SCH ×2 (10:32→21:10)
--- NOTE | 2020-07-10 12:04 | PDOC PROGRESS REPORT ---
Subjective Date:: 07/10/20 Subjective:: Patient was transferred from the ICU after being admitted on 1115 with a respira tory failure secondary to Covid pneumonitis. She was placed on BiPAP. Oxygenation is around 87 to 90% initially but this has since improved to about 90% on 12 L of oxygen. She received convalescent plasma as well as remdesivir she is awake and alert. 07/09 Patient is still on high flow oxygen. She appears to be more confused today. 07/09 Mental status improved and oxygen requirement is down Reason For Visit: ACUTE RESPIRATORY FAILURE Physical Exam Vital Signs: Temp Pulse Resp BP Pulse Ox 99.0 F 97 16 148/88 H 97 07/10/20 11:30 07/10/20 11:30 07/10/20 11:30 07/10/20 11:30 07/10/20 11:30 Intake & Output 07/09/20 07/10/20 07/11/20 06:59 06:59 06:59 Intake Total 1000 1000 Output Total 1625 2600 Balance -625 -1600 Weight 74.7 kg 74.2 kg General appearance: PRESENT: no acute distress, well-developed, well-nourished Head exam: PRESENT: atraumatic, normocephalic Eye exam: PRESENT: conjunctiva pink, EOMI, PERRLA. ABSENT: scleral icterus Mouth exam: PRESENT: tongue midline Neck exam: ABSENT: carotid bruit, JVD, lymphadenopathy, thyromegaly Respiratory exam: PRESENT: clear to auscultation elliott, unlabored. ABSENT: rales, rhonchi, wheezes Cardiovascular exam: PRESENT: RRR, +S1, +S2. ABSENT: diastolic murmur, rubs, systolic murmur Pulses: PRESENT: normal dorsalis pedis pul Vascular exam: PRESENT: normal capillary refill GI/Abdominal exam: PRESENT: normal bowel sounds, soft. ABSENT: distended, guarding, mass, organolmegaly, rebound, tenderness Rectal exam: PRESENT: deferred Extremities exam: PRESENT: full ROM. ABSENT: calf tenderness, clubbing, pedal edema Neurological exam: PRESENT: alert, awake, oriented to person, oriented to place, oriented to time, oriented to situation. ABSENT: motor sensory deficit Psychiatric exam: PRESENT: appropriate affect, normal mood. ABSENT: homicidal ideation, suicidal ideation Skin exam: PRESENT: dry, intact, warm. ABSENT: cyanosis, rash Results Laboratory Results: 07/10/20 05:30 07/10/20 05:30 07/10/20 07/10/20 07/10/20 05:30 05:30 05:30 WBC 16.6 H RBC 4.47 Hgb 13.7 Hct 41.3 MCV 92 MCH 30.6 MCHC 33.1 RDW 13.8 Plt Count 536 H Sodium 144.5 Potassium 4.4 Chloride 109 H Carbon Dioxide 22 Anion Gap 14 BUN 28 H Creatinine 0.89 Est GFR ( Amer) > 60 Glucose 99 Calcium 9.4 Free T4 0.99 Free T3 pg/mL 1.45 L 07/03/20 07/03/20 21:59 21:59 Creatine Kinase 89 CK-MB (CK-2) < 0.22 Troponin I 0.036 NT-Pro-B Natriuret Pep 507 H Impressions: Chest X-Ray 07/07/20 00:00 IMPRESSION: Cannot exclude left lower lobe pneumonia. Assessment and Plan - Diagnosis (1) Pneumonia due to COVID-19 virus Is this a current diagnosis for this admission?: Yes (2) Acute respiratory failure Qualifiers: Respiratory failure complication: hypoxia Qualified Code(s): J96.01 - Acute respiratory failure with hypoxia Is this a current diagnosis for this admission?: Yes - Plan Summary Summary: Chest x-ray shows a left lower lobe pneumonia. Patient has been on cefepime/dexamethasone 4 mg every 8 which I will begin to taper once appropriate and hopefully once her oxygenation level is improved. Will leave her on steroids for now. Leukocytosis is likely secondary to steroids, no evidence of worsening infection 07/10 Patient seems to have turned the corner overnight and appears to be much clinically improved this morning. She is down to 60% FiO2 and is saturating pretty well so we will continue to taper oxygen as tolerated. She has received 7-day course of cefepime which should be discontinued today. She is still on steroids but I will start tapering this down to be discontinued if her pulmonary status remains stable TSH is noted to be low at 0.3 and free T4 is also noted to be low at 1.45 however patient is acutely ill at this time and will stable rechecking these values before any actions been taken. Leukocytosis is likely exacerbated by steroids as there is no evidence of worsening infection. Last chest x-ray was on 07 July which cannot exclude left lower lobe pneumonia and further imaging studies can be done if needed depending on patient's clinical status - Time Time Spent with patient: 15-24 minutes Medications reviewed and adjusted accordingly: Yes Anticipated Discharge Disposition: Home with Home Health Anticipated Discharge Timeframe: within 72 hours
[2020-07-10] MEDS: NORMAL SALINE 1000 ML 1,000 ML IV PRN (12:53)
[2020-07-10] MEDS ORDERED: IPRATROPIUM/ALBUTEROL 0.5-2.5 MG/3 ML AMPUL NEB PRN (15:23)
[2020-07-11] MEDS: ASCORBIC ACID 500 MG TABLET PO SCH ×4 (00:42→17:54)
[2020-07-11 06:10] LABS: HEMATOCRIT 37.6 % (36.0-47.0); HEMOGLOBIN 12.5 g/dL (12.0-15.5); MEAN CORPUSCULAR HEMOGLOBIN 30.7 pg (27.0-33.4); MEAN CORPUSCULAR HGB CONC 33.1 g/dL (32.0-36.0); MEAN CORPUSCULAR VOLUME 93 fl (80-97); PLATELET COUNT 443 10^3/uL (150-450); RED BLOOD COUNT 4.06 10^6/uL (3.72-5.28); RED CELL DISTRIBUTION WIDTH 14.4 % (11.5-14.0); WHITE BLOOD COUNT 11.6 10^3/uL (4.0-10.5)
[2020-07-11] MEDS: NORMAL SALINE 1000 ML 1,000 ML IV PRN (06:24)
[2020-07-11 06:43] LABS: ABSOLUTE LYMPHOCYTES# (MANUAL) 0.7 10^3/uL (0.5-4.7); ABSOLUTE MONOCYTES # (MANUAL) 0.9 10^3/uL (0.1-1.4); BASOPHILS % (MANUAL) 0 % (0-2); EOSINOPHILS % (MANUAL) 0 % (0-6); LYMPHOCYTES % (MANUAL) 6 % (13-45); MONOCYTES % (MANUAL) 8 % (3-13); PLATELET COMMENT ADEQUATE; RBC MORPHOLOGY COMMENT NORMO-CYTIC/CHROMIC; SEGMENTED NEUTROPHILS % (MAN) 86 % (42-78); TOTAL CELLS COUNTED 100
[2020-07-11] MEDS: DEXAMETHASONE SOD PHOSPHATE INJ 4 MG/1 ML VIAL IV SCH (09:26)
[2020-07-11] MEDS: ENOXAPARIN SODIUM INJ 40 MG/0.4 ML DISP.SYRIN SUBCUT SCH ×2 (09:26→22:26)
[2020-07-11] MEDS: CHOLECALCIFEROL (D3) 1,000 UNIT (25 MCG) TABLET PO SCH (09:26)
[2020-07-11] MEDS: ZINC SULFATE 220 MG CAPSULE PO SCH (09:26)
--- NOTE | 2020-07-11 15:18 | PDOC PROGRESS REPORT ---
Subjective Date:: 07/11/20 Subjective:: Patient was seen and examined. She appears in no distress She continues on 6 L of nasal cannula Oxymizer Reason For Visit: ACUTE RESPIRATORY FAILURE Physical Exam Vital Signs: Temp Pulse Resp BP Pulse Ox 98.2 F 71 16 156/86 H 94 07/11/20 10:00 07/11/20 14:00 07/11/20 10:43 07/11/20 07:32 07/11/20 10:43 Intake & Output 07/10/20 07/11/20 07/12/20 06:59 06:59 06:59 Intake Total 1000 2120 Output Total 2600 2024 Balance -1600 95 Weight 163 lb 9.328 oz 161 lb 13.109 oz Exam: General appearance: PRESENT: no acute distress, well-developed, well-nourished Head exam: PRESENT: atraumatic, normocephalic Eye exam: PRESENT: conjunctiva pink, EOMI, PERRLA. ABSENT: scleral icterus Mouth exam: PRESENT: tongue midline Neck exam: ABSENT: carotid bruit, JVD, lymphadenopathy, thyromegaly Respiratory exam: PRESENT: clear to auscultation elliott, unlabored. ABSENT: rales, rhonchi, wheezes Cardiovascular exam: PRESENT: RRR, +S1, +S2. ABSENT: diastolic murmur, rubs, systolic murmur Pulses: PRESENT: normal dorsalis pedis pul Vascular exam: PRESENT: normal capillary refill GI/Abdominal exam: PRESENT: normal bowel sounds, soft. ABSENT: distended, guarding, mass, organolmegaly, rebound, tenderness Rectal exam: PRESENT: deferred Extremities exam: PRESENT: full ROM. ABSENT: calf tenderness, clubbing, pedal edema Neurological exam: PRESENT: alert, awake, oriented to person, oriented to place, oriented to time, oriented to situation. ABSENT: motor sensory deficit Psychiatric exam: PRESENT: appropriate affect, normal mood. ABSENT: homicidal ideation, suicidal ideation Skin exam: PRESENT: dry, intact, warm. ABSENT: cyanosis, rash Results Laboratory Results: 07/11/20 05:15 07/10/20 05:30 07/11/20 05:15 WBC 11.6 H RBC 4.06 Hgb 12.5 Hct 37.6 MCV 93 MCH 30.7 MCHC 33.1 RDW 14.4 H Plt Count 443 Seg Neutrophils % Not Reportable 07/03/20 07/03/20 21:59 21:59 Creatine Kinase 89 CK-MB (CK-2) < 0.22 Troponin I 0.036 NT-Pro-B Natriuret Pep 507 H Impressions: Chest X-Ray 07/07/20 00:00 IMPRESSION: Cannot exclude left lower lobe pneumonia. Assessment and Plan - Diagnosis (1) Acute respiratory failure Qualifiers: Respiratory failure complication: hypoxia Qualified Code(s): J96.01 - Acute respiratory failure with hypoxia Is this a current diagnosis for this admission?: Yes Plan: Patient is currently stable on 6 L of nasal cannula Oxymizer This is actually better than her prior oxygen requirements (2) Pneumonia due to COVID-19 virus Is this a current diagnosis for this admission?: Yes Plan: She finished remdesivir course. Continue dexamethasone - Plan Summary Summary: Chest x-ray shows a left lower lobe pneumonia. Patient has been on cefepime/dexamethasone 4 mg every 8 which I will begin to taper once appropriate and hopefully once her oxygenation level is improved. Will leave her on steroids for now. Leukocytosis is likely secondary to steroids, no evidence of worsening infection 07/10 Patient seems to have turned the corner overnight and appears to be much clinically improved this morning. She is down to 60% FiO2 and is saturating pretty well so we will continue to taper oxygen as tolerated. She has received 7-day course of cefepime which should be discontinued today. She is still on steroids but I will start tapering this down to be discontinued if her pulmonary status remains stable TSH is noted to be low at 0.3 and free T4 is also noted to be low at 1.45 however patient is acutely ill at this time and will stable rechecking these values before any actions been taken. Leukocytosis is likely exacerbated by steroids as there is no evidence of worsening infection. Last chest x-ray was on 07 July which cannot exclude left lower lobe pneumonia and further imaging studies can be done if needed depending on patient's clinical status - Time Anticipated Discharge Disposition: Residential Facility Anticipated Discharge Timeframe: na
[2020-07-11] MEDS: LEVETIRACETAM 500 MG TABLET PO SCH (22:26)
[2020-07-12] MEDS: ASCORBIC ACID 500 MG TABLET PO SCH ×3 (00:27→13:00)
[2020-07-12 05:34] LABS: HEMATOCRIT 35.4 % (36.0-47.0); HEMOGLOBIN 11.5 g/dL (12.0-15.5); MEAN CORPUSCULAR HEMOGLOBIN 30.2 pg (27.0-33.4); MEAN CORPUSCULAR HGB CONC 32.4 g/dL (32.0-36.0); MEAN CORPUSCULAR VOLUME 93 fl (80-97); PLATELET COUNT 386 10^3/uL (150-450); RED CELL DISTRIBUTION WIDTH 14.4 % (11.5-14.0); WHITE BLOOD COUNT 8.4 10^3/uL (4.0-10.5)
[2020-07-12] MEDS: NORMAL SALINE 1000 ML 1,000 ML IV PRN (05:51)
[2020-07-12 06:01] LABS: ANION GAP 8 (5-19); BLOOD UREA NITROGEN 27 mg/dL (7-20); CALCIUM 8.8 mg/dL (8.4-10.2); CARBON DIOXIDE 24 mmol/L (22-30); CHLORIDE 110 mmol/L (98-107); GLUCOSE 75 mg/dL (75-110); POTASSIUM 3.9 mmol/L (3.6-5.0)
[2020-07-12] MEDS ORDERED: MULTIVITAMIN TABLET PO SCH (10:00)
[2020-07-12] MEDS ORDERED: AMLODIPINE BESYLATE 10 MG TABLET PO SCH (10:00)
[2020-07-12] MEDS ORDERED: DEXAMETHASONE SOD PHOSPHATE INJ 4 MG/1 ML VIAL IV SCH (10:00)
[2020-07-12] MEDS ORDERED: CHOLECALCIFEROL (D3) 1,000 UNIT (25 MCG) TABLET PO SCH (10:00)
[2020-07-12] MEDS ORDERED: (PENDING PHARMACY ID) (Multivitamin [Multiple Vitamins] 1 EACH Tablet) PO SCH (10:00)
[2020-07-12] MEDS: LEVETIRACETAM 500 MG TABLET PO SCH (10:29)
[2020-07-12] MEDS: ENOXAPARIN SODIUM INJ 40 MG/0.4 ML DISP.SYRIN SUBCUT SCH (10:30)
[2020-07-12] MEDS: ZINC SULFATE 220 MG CAPSULE PO SCH (10:30)
--- NOTE | 2020-07-12 14:07 | PDOC DISCHARGE SUMMARY ---
Impression - Admit/DC Date/PCP Admission Date/Primary Care Provider: 07/04/20 01:35 CATHERINE RUBALCAVA Discharge Date: 07/12/20 - Discharge Diagnosis (1) Acute respiratory failure Is this a current diagnosis for this admission?: Yes (2) Pneumonia due to COVID-19 virus Is this a current diagnosis for this admission?: Yes - Assessment Summary: Chest x-ray shows a left lower lobe pneumonia. Patient has been on cefepime/dexamethasone 4 mg every 8 which I will begin to taper once appropriate and hopefully once her oxygenation level is improved. Will leave her on steroids for now. Leukocytosis is likely secondary to steroids, no evidence of worsening infection 07/10 Patient seems to have turned the corner overnight and appears to be much clinically improved this morning. She is down to 60% FiO2 and is saturating pretty well so we will continue to taper oxygen as tolerated. She has received 7-day course of cefepime which should be discontinued today. She is still on steroids but I will start tapering this down to be discontinued if her pulmonary status remains stable TSH is noted to be low at 0.3 and free T4 is also noted to be low at 1.45 however patient is acutely ill at this time and will stable rechecking these values before any actions been taken. Leukocytosis is likely exacerbated by steroids as there is no evidence of worsening infection. Last chest x-ray was on 07 July which cannot exclude left lower lobe pneumonia and further imaging studies can be done if needed depending on patient's clinical status - Additional Information Resuscitation Status: Full Code Referrals: LUPE SCHOFIELD FNP-BC [Primary Care Provider] - Follow up as needed Prescriptions: Albuterol Sulfate [Albuterol Sulfate Hfa] 8.5 gm IH Q4HP PRN #1 [email or web address] PRN Reason: Home Medications: Amlodipine Besylate [Norvasc 10 mg Tablet] 10 mg PO DAILY 06/27/20 Levetiracetam [Keppra] 1,000 mg PO BID 06/27/20 Cholecalciferol (Vitamin D3) [Vitamin D3 1000 Unit Tablet] 1,000 unit PO DAILY 07/04/20 Multivitamin [Multiple Vitamins] 1 tab PO DAILY 07/04/20 Albuterol Sulfate [Albuterol Sulfate Hfa] 8.5 gm IH Q4HP PRN #1 [email or web address] 07/12/20 History of Present Illiness History of Present Illness: ALANNAH BRASHER is a 80 year old female This a pleasant 80 yo female who presented to the ED via medics after having progressive SOB, Fever, and confusion over the last week. She presented with c/o cough, fever, and weakness. Denies sore throat, cp, abd pain, h/a, n/v. EMS found an O2 of 54% on RA, up to 70s on 4lpm, and 90s on NRB. Of note, the patient lives with her family member who is positive for COVID-19. In the ED the pt was placed on BiPap, when her pO2 was in the 30s on her abg. Hospital Course Hospital Course: (1) Acute respiratory failure Patient is currently stable on 2 L of nasal cannula Oxymizer This is actually better than her prior oxygen requirements (2) Pneumonia due to COVID-19 virus She finished remdesivir course. She also received dexamethasone Plan Summary Chest x-ray shows a left lower lobe pneumonia. Patient has been on cefepime/dexamethasone Leukocytosis is likely secondary to steroids, no evidence of worsening infection. currently resolved Patient will require oxygen on discharge. She has pneumonia due to COVID-19. She will need to be discharged on 2 L nasal cannula oxygen and with home care. Physical Exam Vital Signs: Temp Pulse Resp BP Pulse Ox 98.3 F 97 21 H 140/84 H 89 L 07/12/20 11:59 07/12/20 11:59 07/12/20 11:59 07/12/20 11:59 07/12/20 11:59 Intake & Output 07/11/20 07/12/20 07/13/20 06:59 06:59 06:59 Intake Total 2120 1360 Output Total 2024 1450 Balance 95 -90 Weight 161 lb 13.109 oz 161 lb 13.109 oz Exam: General appearance: PRESENT: no acute distress, well-developed, well-nourished Head exam: PRESENT: atraumatic, normocephalic Eye exam: PRESENT: conjunctiva pink, EOMI, PERRLA. ABSENT: scleral icterus Mouth exam: PRESENT: tongue midline Neck exam: ABSENT: carotid bruit, JVD, lymphadenopathy, thyromegaly Respiratory exam: PRESENT: clear to auscultation elliott, unlabored. ABSENT: rales, rhonchi, wheezes Cardiovascular exam: PRESENT: RRR, +S1, +S2. ABSENT: diastolic murmur, rubs, systolic murmur Pulses: PRESENT: normal dorsalis pedis pul Vascular exam: PRESENT: normal capillary refill GI/Abdominal exam: PRESENT: normal bowel sounds, soft. ABSENT: distended, guarding, mass, organolmegaly, rebound, tenderness Rectal exam: PRESENT: deferred Extremities exam: PRESENT: full ROM. ABSENT: calf tenderness, clubbing, pedal edema Neurological exam: PRESENT: alert, awake, oriented to person, oriented to place, oriented to time, oriented to situation. ABSENT: motor sensory deficit Psychiatric exam: PRESENT: appropriate affect, normal mood. ABSENT: homicidal ideation, suicidal ideation Skin exam: PRESENT: dry, intact, warm. ABSENT: cyanosis, rash Results Laboratory Results: WBC 8.4 10^3/uL (4.0-10.5) 07/12/20 04:32 RBC 3.80 10^6/uL (3.72-5.28) 07/12/20 04:32 Hgb 11.5 g/dL (12.0-15.5) L 07/12/20 04:32 Hct 35.4 % (36.0-47.0) L 07/12/20 04:32 MCV 93 fl (80-97) 07/12/20 04:32 MCH 30.2 pg (27.0-33.4) 07/12/20 04:32 MCHC 32.4 g/dL (32.0-36.0) 07/12/20 04:32 RDW 14.4 % (11.5-14.0) H 07/12/20 04:32 Plt Count 386 10^3/uL (150-450) 07/12/20 04:32 Lymph % (Auto) Not Reportable 07/11/20 05:15 Jerauld % (Auto) Not Reportable 07/11/20 05:15 Eos % (Auto) Not Reportable 07/11/20 05:15 Baso % (Auto) Not Reportable 07/11/20 05:15 Absolute Neuts (auto) Not Reportable 07/11/20 05:15 Absolute Lymphs (auto) Not Reportable 07/11/20 05:15 Absolute Monos (auto) Not Reportable 07/11/20 05:15 Absolute Eos (auto) Not Reportable 07/11/20 05:15 Absolute Basos (auto) Not Reportable 07/11/20 05:15 Total Counted 100 07/11/20 05:15 Seg Neutrophils % Not Reportable 07/11/20 05:15 Seg Neuts % (Manual) 86 % (42-78) H 07/11/20 05:15 Lymphocytes % (Manual) 6 % (13-45) L 07/11/20 05:15 Monocytes % (Manual) 8 % (3-13) 07/11/20 05:15 Eosinophils % (Manual) 0 % (0-6) 07/11/20 05:15 Basophils % (Manual) 0 % (0-2) 07/11/20 05:15 Abs Neuts (Manual) 10.0 10^3/uL (1.7-8.2) H 07/11/20 05:15 Abs Lymphs (Manual) 0.7 10^3/uL (0.5-4.7) 07/11/20 05:15 Abs Monocytes (Manual) 0.9 10^3/uL (0.1-1.4) 07/11/20 05:15 Absolute Eos (Manual) 0.0 10^3/uL (0.0-0.6) 07/11/20 05:15 Abs Basophils (Manual) 0.0 10^3/uL (0.0-0.2) 07/11/20 05:15 Platelet Comment ADEQUATE 07/11/20 05:15 RBC Morph Comment NORMO-CYTIC/CHROMIC 07/11/20 05:15 Carbonic Acid 1.52 mmol/L (1.05-1.35) H 07/04/20 05:20 HCO3/H2CO3 Ratio 20:1 07/04/20 05:20 ABG pH 7.42 (7.35-7.45) 07/04/20 05:20 ABG pCO2 50.6 mmHg (35-45) H 07/04/20 05:20 ABG pO2 53.6 mmHg (80-100) L 07/04/20 05:20 ABG HCO3 31.7 mmol/L (20-24) H 07/04/20 05:20 ABG Total CO2 33.3 mmol/L (21-25) H 07/04/20 05:20 ABG O2 Saturation 87.8 % (94-98) L 07/04/20 05:20 ABG Base Excess 5.9 mmol/L 07/04/20 05:20 VBG pH 7.41 (7.30-7.42) 07/03/20 21:59 VBG pCO2 55.2 mmHg (35-63) 07/03/20 21:59 VBG HCO3 34.5 mmol/L (20-32) H 07/03/20 21:59 VBG Base Excess 8.2 mmol/L 07/03/20 21:59 FiO2 85% 07/04/20 05:20 Sodium 141.6 mmol/L (137-145) 07/12/20 04:32 Potassium 3.9 mmol/L (3.6-5.0) 07/12/20 04:32 Chloride 110 mmol/L (98-107) H 07/12/20 04:32 Carbon Dioxide 24 mmol/L (22-30) 07/12/20 04:32 Anion Gap 8 (5-19) 07/12/20 04:32 BUN 27 mg/dL (7-20) H 07/12/20 04:32 Creatinine 0.83 mg/dL (0.52-1.25) 07/12/20 04:32 Est GFR ( Amer) > 60 (>60) 07/12/20 04:32 Est GFR (MDRD) Non-Af > 60 (>60) 07/12/20 04:32 Glucose 75 mg/dL (75-110) 07/12/20 04:32 POC Glucose 87 mg/dL (70-110) 07/12/20 11:58 Lactic Acid 1.3 mmol/L (0.7-2.1) 07/04/20 04:20 Calcium 8.8 mg/dL (8.4-10.2) 07/12/20 04:32 Phosphorus 4.5 mg/dL (2.5-4.5) 07/04/20 04:20 Magnesium 2.0 mg/dL (1.6-2.3) 07/04/20 04:20 Total Bilirubin 0.7 mg/dL (0.2-1.3) 07/03/20 21:59 Direct Bilirubin 0.3 mg/dL (0.0-0.4) 07/03/20 21:59 Neonat Total Bilirubin Not Reportable 07/03/20 21:59 Neonat Direct Bilirubin Not Reportable 07/03/20 21:59 Neonat Indirect Bili Not Reportable 07/03/20 21:59 AST 101 U/L (14-36) H 07/03/20 21:59 ALT 37 U/L (<35) H 07/03/20 21:59 Alkaline Phosphatase 64 U/L (38-126) 07/03/20 21:59 Creatine Kinase 89 U/L (30-135) 07/03/20 21:59 CK-MB (CK-2) < 0.22 ng/mL (<4.55) 07/03/20 21:59 Troponin I 0.036 ng/mL 07/03/20 21:59 NT-Pro-B Natriuret Pep 507 pg/mL (<450) H 07/03/20 21:59 Total Protein 6.7 g/dL (6.3-8.2) 07/03/20 21:59 Albumin 3.4 g/dL (3.5-5.0) L 07/03/20 21:59 TSH 0.33 uIU/mL (0.47-4.68) L 07/09/20 05:40 Free T4 0.99 ng/dL (0.78-2.19) 07/10/20 05:30 Free T3 pg/mL 1.45 pg/mL (2.77-5.27) L 07/10/20 05:30 Urine Color YELLOW 07/03/20 13:45 Urine Appearance SLIGHTLY-CLOUDY 07/03/20 13:45 Urine pH 5.0 (5.0-9.0) 07/03/20 13:45 Ur Specific [place] 1.023 07/03/20 13:45 Urine Protein 30 mg/dL (NEGATIVE) H 07/03/20 13:45 Urine Glucose (UA) NEGATIVE mg/dL (NEGATIVE) 07/03/20 13:45 Urine Ketones NEGATIVE mg/dL (NEGATIVE) 07/03/20 13:45 Urine Blood NEGATIVE (NEGATIVE) 07/03/20 13:45 Urine Nitrite NEGATIVE (NEGATIVE) 07/03/20 13:45 Urine Bilirubin NEGATIVE (NEGATIVE) 07/03/20 13:45 Urine Urobilinogen NEGATIVE mg/dL (<2.0) 07/03/20 13:45 Ur Leukocyte Esterase NEGATIVE (NEGATIVE) 07/03/20 13:45 Urine WBC (Auto) 4 /HPF 07/03/20 13:45 Urine RBC (Auto) 3 /HPF 07/03/20 13:45 Squamous Epi Cells Auto 1 /HPF 07/03/20 13:45 Urine Mucus (Auto) RARE /LPF 07/03/20 13:45 Urine Ascorbic Acid 40 (NEGATIVE) H 07/03/20 13:45 COVID-19 Source Cancelled 07/04/20 00:48 COVID-19 (EVELIA) Cancelled 07/04/20 00:48 Influenza A (Rapid) NEGATIVE (NEGATIVE) 07/04/20 00:50 Influenza B (Rapid) NEGATIVE (NEGATIVE) 07/04/20 00:50 SARS-CoV-2 (PCR) POSITIVE (NEGATIVE) H 07/04/20 00:48 Blood Type O POSITIVE 07/04/20 13:45 Antibody Screen NEGATIVE 07/04/20 13:45 07/03/20 21:59 CK-MB (CK-2) < 0.22 Troponin I 0.036 NT-Pro-B Natriuret Pep 507 H Impressions: Chest X-Ray 07/03/20 22:17 IMPRESSION: No acute abnormality as above. copyright 2011 [employer]- All Rights Reserved Chest X-Ray 07/07/20 00:00 IMPRESSION: Cannot exclude left lower lobe pneumonia. Plan Time Spent: Less than 30 Minutes Stroke Is this a Stroke Patient?: No Acute Heart Failure Is this a Heart Failure Patient?: No
[2020-07-12 15:17] VITALS: BP 127/80
== END 2020-07-12 17:50 | disposition home health service (06) | DRG 177 ==
LOC: ER 21:48 → EH 07-04 01:35 → ICU 07-04 04:57 → 3N 07-07 15:22
PROVIDERS: ADMIT Anesthesiology; ATTEND Family Medicine
PROC: 5A09557 Assistance with Respiratory Ventilation, Greater than 96 Consecutive Hours, Continuous Positive Airway Pressure (ICD-10-PCS; principal; 2020-07-03)
PROC: XW13325 Transfusion of Convalescent Plasma (Nonautologous) into Peripheral Vein, Percutaneous Approach, New Technology Group 5 (ICD-10-PCS; 2020-07-04)
PROC: XW033E5 Introduction of Remdesivir Anti-infective into Peripheral Vein, Percutaneous Approach, New Technology Group 5 (ICD-10-PCS; 2020-07-04)
DX: U07.1 COVID-19 (principal); J12.89 Other viral pneumonia; J96.01 Acute respiratory failure with hypoxia; I10 Essential (primary) hypertension; G40.909 Epilepsy, unspecified, not intractable, without status epilepticus; Z78.1 Physical restraint status; Z79.899 Other long term (current) drug therapy
CPT/HCPCS: 36415; 36430; 71045; 80048; 80053; 81001; 82550; 82553; 82803; 82962; 83605; 83735; 83880; 84100; 84439; 84443; 84481; 84484; 85025; 85027; 86850; 86900; 86901; 87040; 87635; 87804; 93005; 93010; 94660; 96365; 96367; 96375; 99285; 99291; 99292; J0610; C9113; C9803; J0456; J0692; J0696; J1100; J1650; J3480; J3490; J7030; J7050; J7060